=== PATIENT | male | born 1965 | race Caucasian/White ===

== ENCOUNTER 2016-11-27 19:12 | Emergency (ER) | payer OTHER ==
[2016-11-27 19:21] VITALS: BP 156/86; PULSE 101; TEMP 98; BMI 44.8
[2016-11-27] MEDS ORDERED: predniSONE 20 MG TABLET (UD) PO ONE (20:31)
[2016-11-27] MEDS ORDERED: ALBUTEROL SO4 2.5/IPRATROPIUM 0.5 INH SOL 3 ML VIAL.NEB. NEB ONE ×2 (20:31→21:07)
--- NOTE | 2016-11-27 20:35 | PDOC ---
History of Present Illness - General Chief Complaint: Shortness of Breath Stated Complaint: SHORTNESS OF BREATH Time Seen by Provider: 11/27/16 20:21 History Source: Patient Exam Limitations: No Limitations - History of Present Illness Initial Comments: 11/27/16 20:32 51 yr male with cough and wheezing for 3 days after exposure to cigarette smoke second hand. Pt states the cold and then warm weather changes is making asthma worse. no fever no chest pain , pt has dry cough. Pt has history of DM, high cholesterol. Seen here one montha go with flu and bronchitis . Severity: reports: mild, moderate Possible Cause: Yes: occasional episodes, smoke exposure Past History - Past Medical History Allergies/Adverse Reactions: Allergies Allergy/AdvReac Type Severity Reaction Status Date / Time ciprofloxacin Allergy Mild Rash Verified 11/05/16 09:52 Home Medications: Ambulatory Orders Metformin HCl [Glucophage -] 500 mg PO BID 10/03/13 Lovastatin 20 mg PO 11/05/16 Albuterol Sulfate Inhaler - [Ventolin Hfa Inhaler -] 2 inh PO Q4H #1 inh Methylprednisolone [Medrol Dose Francisco] 4 mg PO ASDIR #21 tablet 11/27/16 Cancer: No Diabetes: Yes Hypercholesterolemia: Yes HIV: No - Psycho/Social/Smoking Cessation Hx Anxiety: No Suicidal Ideation: No Smoking Status: No Smoking History: Never smoked Number of Cigarettes Smoked Daily: 0 Information on smoking cessation initiated: No Hx Alcohol Use: No Drug/Substance Use Hx: No Substance Use Type: None Respiratory Specific PMHX - Complaint Specific PMHX Angina: No Bronchitis: Yes Pneumonia: No Pulmonary Embolus: No TB (Tuberculosis): No Review of Systems - Review of Systems Able to Perform ROS?: Yes Is the patient limited Spanish proficient: No Constitutional: No: Symptoms Reported Respiratory: Yes: Symptoms reported, See HPI *Physical Exam - Vital Signs Last Vital Signs Temp Pulse Resp BP Pulse Ox 98.0 F 101 H 14 156/86 98 11/27/16 19:18 11/27/16 19:18 11/27/16 19:18 11/27/16 19:18 11/27/16 19:18 - Physical Exam General Appearance: Yes: Nourished, Appropriately Dressed, Obese HEENT: positive: EOMI, TIMMY, Normal ENT Inspection, TMs Normal, Pharynx Normal Neck: positive: Supple. negative: Lymphadenopathy (R), Lymphadenopathy (L) Respiratory/Chest: positive: Wheezing. negative: Chest Tender, Respiratory Distress Cardiovascular: positive: Regular Rhythm, Regular Rate Gastrointestinal/Abdominal: positive: Normal Bowel Sounds, Soft Extremity: positive: Normal Inspection, Normal Range of Motion Integumentary: positive: Normal Color, Dry, Warm Neurologic: positive: Fully Oriented, Alert, Normal Mood/Affect, Normal Response , Motor Strength 5/5 Medical Decision Making - Medical Decision Making 11/27/16 20:34 cc: cough wheezing no fever speaking full sentences no acute distress will give 3 duonebs, prednisone and re-evaluate refer to pulmonary and senior technical business analyst 11/27/16 21:27 pt feels better after the nebulizers will dc home with inhaler, prednisone and follow up with ENT and pulmonary *DC/Admit/Observation/Transfer Diagnosis at time of Disposition: Bronchitis - Discharge Dispostion Disposition: HOME Condition at time of disposition: Good - Prescriptions Prescriptions: Methylprednisolone [Medrol Dose Francisco] 4 mg PO ASDIR #21 tablet Albuterol Sulfate Inhaler - [Ventolin Hfa Inhaler -] 2 inh PO Q4H #1 inh - Patient Instructions Additional Instructions: take prednisone daily next dose tomorrow morning use inhaler as directed you must monitor your blood sugar while on prednisone please call the pulmonary doctor tomorrow for follow up appointment as well as the allertgist at ENT [phone] return if any worsening symptoms
[2016-11-27] MEDS ORDERED: predniSONE 20 MG TABLET (UD) ONE ×2 (20:37→20:39)
== END 2016-11-27 21:39 | disposition home or self-care (01) ==
LOC: JERFT 19:12 → JER 19:12 → JERFT 21:39
PROC: 3E0F7GC Introduction of Other Therapeutic Substance into Respiratory Tract, Via Natural or Artificial Opening (ICD-10-PCS; principal; 2016-11-27)
PROC: 3E0F7GC Introduction of Other Therapeutic Substance into Respiratory Tract, Via Natural or Artificial Opening (ICD-10-PCS; 2016-11-27)
DX: J40 Bronchitis, not specified as acute or chronic (principal); Z77.22 Contact with and (suspected) exposure to environmental tobacco smoke (acute) (chronic); E11.9 Type 2 diabetes mellitus without complications; Z79.84 Long term (current) use of oral hypoglycemic drugs; E78.00 Pure hypercholesterolemia, unspecified
CPT/HCPCS: 99281-25

== ENCOUNTER 2017-01-16 14:46 | Emergency (ER) | payer OTHER ==
--- NOTE | 2017-01-16 14:52 | PDOC ---
Rapid Medical Evaluation Time Seen by Provider: 01/16/17 14:50 Medical Evaluation: Allergies Allergy/AdvReac Type Severity Reaction Status Date / Time ciprofloxacin Allergy Mild Rash Verified 01/16/17 14:50 01/16/17 14:51 I have performed a brief in-person evaluation of this patient. The patient presents with a chief complaint of: weakness and fatigue x 1 day. No other complaints Pertinent physical exam findings: I have ordered the following: cbc, comp, mag, ua, The patient will proceed to the ED for further evaluation.
[2017-01-16 14:54] VITALS: TEMP 98.8; BMI 44.1
[2017-01-16 16:28] LABS: BASOPHIL 0.2 % (0-2.0); EOSINOPHIL 0.4 % (0-4.5); MCHC 32.1 g/dl (32.0-35.9); MEAN CELL VOLUME 61.4 fl (80-96); MEAN PLT VOLUME 9.6 fl (7.5-11.1); NEUTROPHILS 79.5 % (42.8-82.8); PLATELET COUNT 199 K/MM3 (134-434); RDW 16.9 % (11.9-15.9); URINE APPEARANCE CLEAR; URINE BILIRUBIN NEGATIVE (NEGATIVE); URINE BLOOD NEGATIVE (NEGATIVE); URINE COLOR YELLOW; URINE GLUCOSE (UA) NEGATIVE (NEGATIVE); URINE KETONE NEGATIVE (NEGATIVE); URINE LEUK ESTERASE NEGATIVE (NEGATIVE); URINE NITRITE NEGATIVE (NEGATIVE); URINE PROTEIN NEGATIVE (NEGATIVE); URINE UROBILINOGEN NEGATIVE E.U./dl (0.2-1.0); WHITE BLOOD COUNT 9.8 K/mm3 (4.0-10.0)
[2017-01-16 16:33] LABS: MCH 19.7 pg (25.7-33.7)
[2017-01-16] MEDS ORDERED: SODIUM CHLORIDE 1,000 ML IV STA (16:39)
--- NOTE | 2017-01-16 16:41 | PDOC ---
History of Present Illness - General History Source: Patient Exam Limitations: No Limitations - History of Present Illness Initial Comments: 01/16/17 17:12 The patient is a 51 year old male, with a significant past medical history of thalassemia anemia, chronic bronchitis, diabetes and obesity, who presents to the emergency department with generalized weakness and fatigue since this morning. The patient was in his usual state of health yesterday. However, this morning the patient reports feeling fatigued with shortness of breath on exertion. The patient reports that when at rest, he feels fine. However when he ambulates, he feels short of breath. The patient denies chest pain. The patient denies fever, chills, nausea, vomiting, diarrhea, constipation, abdominal pain or any recent illnesses. Allergies: Ciprofloxacin. Past Surgical History: None reported. Social History: Non smoker. Denies alcohol or drug use. PCP: Dr. Shearer <Jacqui Francois - Last Filed: 01/16/17 20:15> - General History Source: Patient, Custodial Records Exam Limitations: No Limitations <Travon Hunt - Last Filed: 01/16/17 22:23> - General Chief Complaint: Weakness Stated Complaint: Shortness of Breath Time Seen by Provider: 01/16/17 14:50 Past History <Jacqui Francois - Last Filed: 01/16/17 20:15> - Past Medical History Cancer: No Diabetes: Yes Hypercholesterolemia: Yes HIV: No - Psycho/Social/Smoking Cessation Hx Anxiety: No Suicidal Ideation: No Smoking Status: No Smoking History: Never smoked Have you smoked in the past 12 months: No Number of Cigarettes Smoked Daily: 0 Information on smoking cessation initiated: No Hx Alcohol Use: No Drug/Substance Use Hx: No Substance Use Type: None <Travon Hunt - Last Filed: 01/16/17 22:23> - Past Medical History Allergies/Adverse Reactions: Allergies Allergy/AdvReac Type Severity Reaction Status Date / Time ciprofloxacin Allergy Mild Rash Verified 01/16/17 14:50 Home Medications: Ambulatory Orders Metformin HCl [Glucophage -] 500 mg PO BID 10/03/13 Lovastatin 20 mg PO DAILY 11/05/16 Albuterol Sulfate Inhaler - [Ventolin Hfa Inhaler -] 2 inh PO Q4H #1 inh Review of Systems - Review of Systems Able to Perform ROS?: Yes Comments:: 01/16/17 17:01 GENERAL/CONSTITUTIONAL: +Weakness, fatigue. No fever or chills. HEAD, EYES, EARS, NOSE AND THROAT: No change in vision. No ear pain or discharge. No sore throat. CARDIOVASCULAR: +Shortness of breath on exertion. No chest pain. RESPIRATORY: No cough, wheezing, or hemoptysis. GASTROINTESTINAL: No nausea, vomiting, diarrhea or constipation. GENITOURINARY: No dysuria, frequency, or change in urination. MUSCULOSKELETAL: No joint or muscle swelling or pain. No neck or back pain. SKIN: No rash. NEUROLOGIC: No headache, vertigo, loss of consciousness, or change in strength/ sensation. ENDOCRINE: No increased thirst. No abnormal weight change. HEMATOLOGIC/LYMPHATIC: No anemia, easy bleeding, or history of blood clots. ALLERGIC/IMMUNOLOGIC: No hives or skin allergy. <Jacqui Francois - Last Filed: 01/16/17 20:15> *Physical Exam - Vital Signs Last Vital Signs Temp Pulse Resp BP Pulse Ox 98.8 F 94 H 18 160/100 100 01/16/17 14:51 01/16/17 14:51 01/16/17 14:51 01/16/17 14:51 01/16/17 14:51 - Physical Exam Comments: 01/16/17 16:55 GENERAL: Awake, alert, and fully oriented, in no acute distress. HEAD: No signs of trauma. EYES: PERRLA, EOMI, sclera anicteric, conjunctiva clear. ENT: Auricles normal inspection, hearing grossly normal, nares patent, oropharynx clear without exudates. Moist mucosa. NECK: Normal ROM, supple, no lymphadenopathy, JVD, or masses. LUNGS: Breath sounds equal, clear to auscultation bilaterally. No wheezes, and no crackles. HEART: Regular rate and rhythm, normal S1 and S2, no murmurs, rubs or gallops. ABDOMEN: Soft, nontender, normoactive bowel sounds. No guarding, no rebound. No masses. EXTREMITIES: Normal range of motion, no edema. No clubbing or cyanosis. No cords, erythema, or tenderness. NEUROLOGICAL: Cranial nerves II through XII intact. Normal speech, normal gait. SKIN: Warm, dry, normal turgor, no rashes or lesions noted. <Jacqui Francois - Last Filed: 01/16/17 20:15> - Vital Signs Last Vital Signs Temp Pulse Resp BP Pulse Ox 98.8 F 94 H 18 160/100 100 01/16/17 14:51 01/16/17 14:51 01/16/17 14:51 01/16/17 14:51 01/16/17 14:51 <Travon Hunt - Last Filed: 01/16/17 22:23> Heart Score/ECG Review - History History: Moderately suspicious - Electrocardiogram EKG: Non specific repolarization disturbance - Age Age: 45-65 - Risk Factors Risk Factors Heart Score: Yes Hx Diabetes, Yes Hx Obesity Based on the list above the patient has:: 1-2 risk factors - Troponin Troponin: </= normal limit - Score Heart Score - Total: 4 #1 ECG reviewed & interpreted by me at: 16:30 01/16/17 16:40 NSR 84, T wave flattening II, III, aVF, V2-V6, no std/minerva, LVH, QTC 404 msec. #2 ECG reviewed & interpreted by me at: 20:45 01/16/17 22:09 NSR 91, LVH, T wave flattening II, III, aVF, V4-V6, no std/minerva, QTC 404 msec. ECG unchanged from prior. <Travon Hunt - Last Filed: 01/16/17 22:23> ED Treatment Course - LABORATORY CBC & Chemistry Diagram: 01/16/17 15:51 01/16/17 16:42 - ADDITIONAL ORDERS Additional order review: Laboratory Results 01/16/17 15:51 Sodium Cancelled Potassium Cancelled Chloride Cancelled Carbon Dioxide Cancelled Anion Gap Cancelled BUN Cancelled Creatinine Cancelled Creat Clearance w eGFR Cancelled Random Glucose Cancelled Calcium Cancelled Magnesium Cancelled Total Bilirubin Cancelled AST Cancelled ALT Cancelled Alkaline Phosphatase Cancelled Total Protein Cancelled Albumin Cancelled 01/16/17 15:51 RBC 6.09 H MCV 61.4 L MCHC 32.1 RDW 16.9 H MPV 9.6 Neutrophils % 79.5 Lymphocytes % 17.4 Monocytes % 2.5 L Eosinophils % 0.4 D Basophils % 0.2 <Jacqui Francois - Last Filed: 01/16/17 20:15> - LABORATORY CBC & Chemistry Diagram: 01/16/17 15:51 01/16/17 16:42 - ADDITIONAL ORDERS Additional order review: 01/16/17 15:51 RBC 6.09 H MCV 61.4 L MCHC 32.1 RDW 16.9 H MPV 9.6 Neutrophils % 79.5 Lymphocytes % 17.4 Monocytes % 2.5 L Eosinophils % 0.4 D Basophils % 0.2 - RADIOLOGY Radiology Studies Ordered: Category Date Time Status CHEST PA & LAT [RAD] Stat Radiology 01/16/17 16:35 Ordered <Carlyn Huntel - Last Filed: 01/16/17 22:23> Medical Decision Making - Medical Decision Making 01/16/17 19:28 EXAM: RAD/CHEST PA & LAT Reviewed By: Dr. Kristi Armenta IMPRESSION: No significant interval change. Mild cardiomegaly without evidence of acute lung disease. EXAM: US/ABDOMEN US LIMITED Reviewed By: Dr. Kristi Armenta IMPRESSION: Hepatomegaly with fatty infiltration versus hepatocellular disease. No gallstones are identified. Call placed to Dr. Saym Chakraborty at 19:52. Referred to answering service, awaiting callback. Dr. Bony Cohen returned call at 17:55, case discussed. Call placed to Dr. Baez at 19:54. Referred to answering service, awaiting callback. Dr. Patrick returned call at 20:12, case discussed. <Jacqui Francois - Last Filed: 01/16/17 20:15> - Medical Decision Making 01/16/17 16:37 A portion of this note was written by my scribe, under my supervision. Vital Signs Temp Pulse Resp BP Pulse Ox 98.8 F 94 H 18 160/100 100 01/16/17 14:51 01/16/17 14:51 01/16/17 14:51 01/16/17 14:51 01/16/17 14:51 51 year old male with past medical history of thalassemia anemia, obesity, DM, bronchitis presents with generalized weakness and fatigue. He reports yesterday of feeling well, but today noted that he was feeling fatigued and with some dypneic on exertion. He reports decreased excercise tolerance but denies chest pain. Denies recent illnesses, fevers, chills, nausea, vomiting, diarrhea. At rest, he feels unremarkable. When he ambulates, he feels SOB. Differential is broad and includes metabolic (i.e. hyperglycemia or hypoglycemia ), thalassemia anemia, and cardiac (ACS). WIll send labs including trop, ECG, CBC, CMP. IVF and reassess. 01/16/17 22:09 CBC, BMP 01/16/17 15:51 01/16/17 16:42 CMP Sodium 139 mmol/L (136-145) 01/16/17 16:42 Potassium 4.2 mmol/L (3.5-5.1) 01/16/17 16:42 Chloride 100 mmol/L (98-107) 01/16/17 16:42 Carbon Dioxide 28 mmol/L (21-32) 01/16/17 16:42 Anion Gap 11 (8-16) 01/16/17 16:42 BUN 13 mg/dL (7-18) D 01/16/17 16:42 Creatinine 0.7 mg/dL (0.7-1.3) D 01/16/17 16:42 Creat Clearance w eGFR > 60 (>60) 01/16/17 16:42 Random Glucose 166 mg/dL (74-106) H D 01/16/17 16:42 Calcium 8.7 mg/dL (8.5-10.1) 01/16/17 16:42 Magnesium 1.7 mg/dL (1.8-2.4) L 01/16/17 16:42 Total Bilirubin 1.1 mg/dL (0.2-1.0) H D 01/16/17 16:42 AST 422 U/L (15-37) H D 01/16/17 16:42 ALT 218 U/L (12-78) H D 01/16/17 16:42 Alkaline Phosphatase 101 U/L (45-117) D 01/16/17 16:42 Creatine Kinase 130 IU/L (39-308) 01/16/17 20:35 Creatine Kinase Index 1.1 % (0.0-5.0) 01/16/17 16:42 CK-MB (CK-2) 1.896 ng/ml (0.5-3.6) 01/16/17 16:42 CK-MB (CK-2) Rel Index Cancelled 01/16/17 16:42 Troponin I < 0.02 ng/ml (0.00-0.05) 01/16/17 20:35 Total Protein 7.0 g/dl (6.4-8.2) 01/16/17 16:42 Albumin 3.9 g/dl (3.4-5.0) 01/16/17 16:42 Urine Test Results Urine Color Yellow 01/16/17 15:51 Urine Appearance Clear 01/16/17 15:51 Urine pH 5.0 (5.0-8.0) 01/16/17 15:51 Ur Specific [place] 1.023 (1.001-1.035) 01/16/17 15:51 Urine Protein Negative (NEGATIVE) 01/16/17 15:51 Urine Glucose (UA) Negative (NEGATIVE) 01/16/17 15:51 Urine Ketones Negative (NEGATIVE) 01/16/17 15:51 Urine Blood Negative (NEGATIVE) 01/16/17 15:51 Urine Nitrite Negative (NEGATIVE) 01/16/17 15:51 Urine Bilirubin Negative (NEGATIVE) 01/16/17 15:51 Ur Leukocyte Esterase Negative (NEGATIVE) 01/16/17 15:51 The patient was given IV fluids and his weakness and short of breath resolved. Patient reports feeling well and unremarkable. I discussed the case regarding the LFTs with the patient. It is elevated mildly.Ultrasound was obtained and was noted to be fatty acid vs.hepatcellular disease. At this time, patient has no jaundice or right upper quadrant pain. Denies nausea or vomiting tolerate by mouth. I had consulted Dr. Cohen regarding the details of the case. He states that given patient has no symptoms, this can be worked up as an outpatient. Will give referral to Dr. Cohen as an outpatient. I agree with the plan. I had then consulted senior sales executive Dr. Patrick regarding this episode of dyspneic on exertion. I gave the details of the case. EKG demonstrates nonspecific flattening of T waves with no prior EKGs. He recommends to troponins and repeat EKG d-dimer. If stable and to troponins are negative and d-dimer is negative, patient can follow-up as an outpatient basis on an urgent timely fashion for outpatient stress test. Labs were done and to troponins were negative and the d-dimer is negative. We'll discharge patient with specialist follow-up. Patient agrees with plan. I discussed the physical exam findings, ancillary test results and final diagnoses with the patient. I answered all of the patient's questions. The patient was satisfied with the care received and felt comfortable with the discharge plan and treatment plan. The patient will call their primary care physician within 24 hours to arrange follow-up and will return to the Emergency Department with any new, persistant or worsening symptoms. <Travon Hunt - Last Filed: 01/16/17 22:23> *DC/Admit/Observation/Transfer - Attestations Scribe Attestion: 01/16/17 16:55 Documentation prepared by Jacqui Francois, acting as biomedical equipment support specialist for Travon Hunt MD. <Jacqui Francois - Last Filed: 01/16/17 20:15> - Discharge Dispostion Admit: No <Travon Hunt - Last Filed: 01/16/17 22:23> Diagnosis at time of Disposition: Lightheadedness - Discharge Dispostion Disposition: HOME Condition at time of disposition: Good - Referrals Referrals: Rose Mary Marquez MD [Primary Care Provider] - Bony Cohen MD [Staff Physician] - Charles Patrick MD [Staff Physician] - - Patient Instructions Printed Discharge Instructions: DI for Shortness of Breath, How to Manage Shortness of Breath Additional Instructions: Your liver enzymes are elevated, which may mean inflammation. It is very important that you follow up with a GI doctor. Call to schedule an appointment. It is also very important that you follow up with a senior sales executive. You will need a stress test. Please call Dr. Patrick for an appointment. If you develop any chest pain or shortness of breath, please return to the ER for further evaluation. Print Language: JORDANIAN - Post Discharge Activity Work/School Note: Back to Work
[2017-01-16 17:28] LABS: PLATELET ESTIMATE ADEQUATE (NORMAL)
[2017-01-16 17:29] LABS: HYPOCHROMIA 3+; MICROCYTOSIS 2+; PLATELET COMMENT2 FEW GIANT PLTS; POIKILOCYTOSIS 1+; POLYCHROMASIA 1+
[2017-01-16 17:34] LABS: ALBUMIN 3.9 g/dl (3.4-5.0); ANION GAP 11 (8-16); BILIRUBIN,TOTAL 1.1 mg/dL (0.2-1.0); CALCIUM 8.7 mg/dL (8.5-10.1); CO2 28 mmol/L (21-32); CREATININE 0.7 mg/dL (0.7-1.3); GLUCOSE,RANDOM 166 mg/dL (74-106); SGPT/ALT 218 U/L (12-78)
[2017-01-16 17:35] LABS: ALK PHOS 101 U/L (45-117); MAGNESIUM 1.7 mg/dL (1.8-2.4)
[2017-01-16 17:36] LABS: SGOT/AST 422 U/L (15-37)
[2017-01-16 17:37] LABS: TROPONIN I < 0.02 ng/ml (0.00-0.05)
[2017-01-16] MEDS ORDERED: MAGNESIUM SULF 50% (8.12 MEQ/2 ML-1 GM VIAL) IVPB ONE (20:16)
[2017-01-16] MEDS ORDERED: MAGNESIUM SULF 50% (8.12 MEQ/2 ML-1 GM VIAL) ONE (20:37)
[2017-01-16 21:07] VITALS: BP 121/74; PULSE 95
[2017-01-16 21:39] LABS: TROPONIN I < 0.02 ng/ml (0.00-0.05)
--- NOTE | 2017-01-17 14:45 | EKG ---
Test Reason : Blood Pressure : / mmHG Vent. Rate : 091 BPM Atrial Rate : 091 BPM P-R Int : 152 ms QRS Dur : 096 ms QT Int : 354 ms P-R-T Axes : 031 -05 075 degrees QTc Int : 435 ms NORMAL SINUS RHYTHM MINIMAL VOLTAGE CRITERIA FOR LVH, MAY BE NORMAL VARIANT NONSPECIFIC T WAVE ABNORMALITY ABNORMAL ECG WHEN COMPARED WITH ECG OF 16-JAN-2017 16:28, NO SIGNIFICANT CHANGE WAS FOUND Confirmed by JAIME GRAHAM MD ([id number]) on 01/17/2017 2:45:15 PM Referred By: Confirmed By:JAIME GRAHAM MD
--- NOTE | 2017-01-17 14:47 | EKG ---
Test Reason : Blood Pressure : / mmHG Vent. Rate : 084 BPM Atrial Rate : 084 BPM P-R Int : 148 ms QRS Dur : 098 ms QT Int : 342 ms P-R-T Axes : 033 -06 054 degrees QTc Int : 404 ms NORMAL SINUS RHYTHM MINIMAL VOLTAGE CRITERIA FOR LVH, MAY BE NORMAL VARIANT NONSPECIFIC T WAVE ABNORMALITY ABNORMAL ECG NO PREVIOUS ECGS AVAILABLE Confirmed by JAIME GRAHAM MD ([id number]) on 01/17/2017 2:47:18 PM Referred By: Confirmed By:JAIME GRAHAM MD
== END 2017-01-16 22:34 | disposition home or self-care (01) ==
LOC: JER 14:46
DX: R42 Dizziness and giddiness (principal); E11.9 Type 2 diabetes mellitus without complications; Z79.84 Long term (current) use of oral hypoglycemic drugs; E78.00 Pure hypercholesterolemia, unspecified
CPT/HCPCS: 36415; 71020-TC; 76705-TC; 80053; 81003; 82550; 82553; 83735; 84484; 85025; 85379; 93005; 93010; 99284-25

== ENCOUNTER 2017-02-17 19:24 | Emergency (ER) | payer OTHER ==
[2017-02-17 19:48] VITALS: TEMP 98; BMI 44.8
--- NOTE | 2017-02-17 23:08 | PDOC ---
History of Present Illness - General History Source: Patient Exam Limitations: No Limitations - History of Present Illness Initial Comments: 02/17/17 23:17 The patient is a 51 year old male with significant past medical history of recent evaluation for hypertension (not on medication), thalassemia anemia, chronic bronchitis, diabetes and obesity who presents to the ED for elevated blood pressure. Patient reports he recently followed up with a ice skating teacher where he was told to have high blood pressure. His ice skating teacher informed him that she wanted him to lose some weight before starting him on hypertension medications. He reports 3 days of a slight headache with tension in the back of his head and neck. He also has complaints of feeling anxious. He became concerned about his high blood pressure and decided to come to the ER. During triage, patients blood pressure was noted to be 161/108. States he is complaint with his medications. Denies lightheadedness, dizziness, chest pain, SOB, jaw pain, shoulder pain, arm pain, nausea, or vomiting. The patient denies fever, chills, cough, abdominal pain, and diarrhea. Allergies: ciprofloxacin Social History: No alcohol, tobacco, or drug use reported. Past Surgical History: None reported PCP: Dr. Rose Mary Shearer <Geraldine Mclain - Last Filed: 02/17/17 23:18> - General History Source: Patient <NemesioDonovan avina - Last Filed: 02/17/17 23:32> - General Chief Complaint: Blood Pressure Problem Stated Complaint: BLOOD PRESSURE PROBLEM Time Seen by Provider: 02/17/17 22:56 Past History <Geraldine Mclain - Last Filed: 02/17/17 23:18> - Past Medical History Cancer: No Diabetes: Yes Hypercholesterolemia: Yes HIV: No - Psycho/Social/Smoking Cessation Hx Anxiety: No Suicidal Ideation: No Smoking Status: No Smoking History: Never smoked Have you smoked in the past 12 months: No Number of Cigarettes Smoked Daily: 0 Hx Alcohol Use: No Drug/Substance Use Hx: No Substance Use Type: None <Donovan Choudhury - Last Filed: 02/17/17 23:32> - Past Medical History Allergies/Adverse Reactions: Allergies Allergy/AdvReac Type Severity Reaction Status Date / Time ciprofloxacin Allergy Mild Rash Verified 02/17/17 19:48 Home Medications: Ambulatory Orders Metformin HCl [Glucophage -] 500 mg PO BID 10/03/13 Lovastatin 20 mg PO DAILY 11/05/16 Review of Systems - Review of Systems Able to Perform ROS?: Yes Comments:: 02/17/17 23:17 CONSTITUTIONAL: Absent: fever, no chills, no fatigue EYES: Absent: visual changes ENT: Absent: ear pain, no sore throat CARDIOVASCULAR: +elevated bp Absent: chest pain, no palpitations RESPIRATORY: Absent: cough, no SOB GI: Absent: abdominal pain, no nausea, no vomiting, no constipation, no diarrhea GENITOURINARY: Absent: dysuria, no frequency, no hematuria MUSCULOSKELETAL: +tension in back of the head and neck Absent: back pain, no arthralgia Absent: rash NEURO: +mild headache PSYCHIATRIC: +anxious Absent: depression, suicidal or homicidal ideation <Geraldine Mclain - Last Filed: 02/17/17 23:18> *Physical Exam - Vital Signs Last Vital Signs Temp Pulse Resp BP Pulse Ox 98 F 96 H 18 161/108 98 02/17/17 19:45 02/17/17 19:45 02/17/17 19:45 02/17/17 19:45 02/17/17 19:45 - Physical Exam Comments: 02/17/17 23:17 GENERAL: Well-appearing, well-nourished. No apparent distress. HEENT: Normocephalic, atraumatic. PERRL, EOM intact. CARDIOVASCULAR: Normal S1, S2. Regular rate and rhythm. PULMONARY: Clear to auscultation bilaterally. ABDOMEN: Obese. Soft, non-distended, non-tender. EXTREMITIES: Normal ROM in all four extremities. No gross deformities. SKIN: Warm, dry. No rash NEUROLOGICAL: No focal neurological deficits. PSYCHIATRIC: Cooperative. Good eye contact. Appropriate mood and affect. <Geraldine Mclain - Last Filed: 02/17/17 23:18> - Vital Signs Last Vital Signs Temp Pulse Resp BP Pulse Ox 98 F 96 H 18 161/108 98 02/17/17 19:45 02/17/17 19:45 02/17/17 19:45 02/17/17 19:45 02/17/17 19:45 <Donovan Choudhury - Last Filed: 02/17/17 23:32> Medical Decision Making - Medical Decision Making 02/17/17 23:29 Dr. Choudhury: The scribe's documentation has been prepared under my direction and personally reviewed by me in its entirery. I confirm that the note above accurately reflects all work, treatment, procedures, and medical decision making performed by me. Pt states that he has not been able to sleep, concerned about his blood pressure. Pt advised to see his doctor for discussion of his blood pressure, and that he hasn't been able to sleep <Donovan Choudhury - Last Filed: 02/17/17 23:32> *DC/Admit/Observation/Transfer - Attestations Scribe Attestion: 02/17/17 23:17 Documentation prepared by Geraldine Mclain, acting as medical records technician for Donovan Choudhury MD <Geraldine Mclain - Last Filed: 02/17/17 23:18> - Discharge Dispostion Admit: No <Donovan Choudhury - Last Filed: 02/17/17 23:32> Diagnosis at time of Disposition: Anxiety Hypertension Qualifiers: Hypertension type: other secondary hypertension Qualified Code(s): I15.8 - Other secondary hypertension - Discharge Dispostion Disposition: HOME Condition at time of disposition: Stable - Referrals Referrals: Rose Mary Marquez MD [Primary Care Provider] - - Patient Instructions Printed Discharge Instructions: DI for High Blood Pressure, DI for Anxiety -- Adult Additional Instructions: Please see your doctor tomorrow. Please discuss with them the fact that you have not been sleeping, and the concern about your blood pressure Print Language: CHADIAN - Post Discharge Activity Work/School Note: Back to Work
[2017-02-17 23:21] VITALS: BP 126/84; PULSE 73
[2017-02-17] MEDS ORDERED: LORazepam 1 MG TABLET PO ONE (23:32)
[2017-02-17] MEDS ORDERED: LORazepam 0.5 MG TABLET ONE (23:38)
== END 2017-02-18 00:10 | disposition home or self-care (01) ==
LOC: JER 19:24
DX: I10 Essential (primary) hypertension (principal); D56.9 Thalassemia, unspecified; E11.9 Type 2 diabetes mellitus without complications; E66.09 Other obesity due to excess calories; Z68.41 Body mass index [BMI] 40.0-44.9, adult
CPT/HCPCS: 99281-25

== ENCOUNTER → 2017-03-24 | Emergency (ER) | payer OTHER ==
--- NOTE | 2017-03-24 03:39 | PDOC ---
History of Present Illness - General History Source: Patient Exam Limitations: No Limitations - History of Present Illness Initial Comments: 03/24/17 03:45 The patient is a 51 year old male with significant past medical history of hypertension, thalassemia anemia, chronic bronchitis, diabetes and obesity who presents to the ED for elevated blood pressure prior to arrival. Patient reports at around 1:30am he checked his blood pressure when he noted it to be 160/97 and normally it is in the 120s. States he was taking 5mg of norvasc that was recently changed 3 days ago to 7.5 mg. Patient reports some discomfort in the neck. Denies headache, blurry vision, dizziness, lightheadedness, SOB, chest pain, palpitations, nausea, or vomiting. The patient denies fever, chills, diaphoresis, cough, abdominal pain, and diarrhea. Allergies: ciprofloxacin Social History: No alcohol, tobacco, or drug use reported. Past Surgical History: None reported PCP: Dr. Rose Mary Shearer <Geraldine Mclain - Last Filed: 03/24/17 03:45> - General History Source: Patient <Donovan Choudhury - Last Filed: 03/24/17 04:08> - General Stated Complaint: BLOOD PRESSURE PROBLEM Time Seen by Provider: 03/24/17 03:39 Past History <Geraldine Mclain - Last Filed: 03/24/17 03:45> - Past Medical History Cancer: No Diabetes: Yes Hypercholesterolemia: Yes HIV: No - Psycho/Social/Smoking Cessation Hx Anxiety: No Suicidal Ideation: No Smoking Status: No Smoking History: Never smoked Have you smoked in the past 12 months: No Number of Cigarettes Smoked Daily: 0 Hx Alcohol Use: No Drug/Substance Use Hx: No Substance Use Type: None <Donovan Choudhury - Last Filed: 03/24/17 04:08> - Past Medical History Allergies/Adverse Reactions: Allergies Allergy/AdvReac Type Severity Reaction Status Date / Time ciprofloxacin Allergy Mild Rash Verified 03/24/17 03:48 Home Medications: Ambulatory Orders Metformin HCl [Glucophage -] 500 mg PO BID 10/03/13 Lovastatin 20 mg PO DAILY 11/05/16 Amlodipine Besylate 7.5 mg PO 03/24/17 Review of Systems - Review of Systems Able to Perform ROS?: Yes Comments:: 03/24/17 03:45 CONSTITUTIONAL: Absent: fever, no chills, no fatigue EYES: Absent: visual changes ENT: Absent: ear pain, no sore throat CARDIOVASCULAR: +elevated blood pressure Absent: chest pain, no palpitations RESPIRATORY: Absent: cough, no SOB GI: Absent: abdominal pain, no nausea, no vomiting, no constipation, no diarrhea GENITOURINARY: Absent: dysuria, no frequency, no hematuria MUSCULOSKELETAL: +neck discomfort Absent: back pain, no arthralgia SKIN: Absent: rash NEURO: Absent: headache <Geraldine Mclain - Last Filed: 03/24/17 03:45> *Physical Exam - Physical Exam Comments: 03/24/17 03:45 GENERAL: Well-appearing, well-nourished. No apparent distress. HEENT: Normocephalic, atraumatic. PERRL, EOM intact. CARDIOVASCULAR: Normal S1, S2. Regular rate and rhythm. PULMONARY: Clear to auscultation bilaterally. ABDOMEN: Soft, non-distended, non-tender. EXTREMITIES: Normal ROM in all four extremities. No gross deformities. SKIN: Warm, dry. No rash NEUROLOGICAL: No focal neurological deficits. <Geraldine Mclain - Last Filed: 03/24/17 03:45> Medical Decision Making - Medical Decision Making 03/24/17 04:01 Dr. Choudhury: The scribe's documentation has been prepared under my direction and personally reviewed by me in its entirery. I confirm that the note above accurately reflects all work, treatment, procedures, and medical decision making performed by me. 03/24/17 04:02 BP 151/90. Pt feeling better. Ask if his finger stick could be checked. BGM is 214 . Pt to be discharged and to follow up with his pcp. <Donovan Choudhuyr - Last Filed: 03/24/17 04:08> *DC/Admit/Observation/Transfer - Attestations Scribe Attestion: 03/24/17 03:46 Documentation prepared by Geraldine Mclain, acting as medical doctor nuclear medicine for Donovan Choudhury MD/DO. <Geraldine Mclain - Last Filed: 03/24/17 03:45> - Discharge Dispostion Admit: No <Donovan Choudhury - Last Filed: 03/24/17 04:08> Diagnosis at time of Disposition: Hypertension - Discharge Dispostion Disposition: HOME Condition at time of disposition: Stable - Referrals Referrals: Rose Mary Marquez MD [Primary Care Provider] - - Patient Instructions Printed Discharge Instructions: DI for High Blood Pressure, How to Monitor Your Blood Pressure at Home Print Language: TELUGU
[2017-03-24 03:53] VITALS: BP 151/90; PULSE 82; TEMP 97.6; BMI 44.1
== END | disposition home or self-care (01) ==
LOC: JER 02:30
DX: I10 Essential (primary) hypertension (principal); E11.9 Type 2 diabetes mellitus without complications; Z79.84 Long term (current) use of oral hypoglycemic drugs; D56.9 Thalassemia, unspecified; J42 Unspecified chronic bronchitis; E66.01 Morbid (severe) obesity due to excess calories; Z68.44 Body mass index [BMI] 60.0-69.9, adult
CPT/HCPCS: 99281-25

== ENCOUNTER 2017-05-01 03:29 | Emergency (ER) | payer OTHER ==
[2017-05-01 03:58] VITALS: BP 144/89; PULSE 64; TEMP 97.9; BMI 44.1
[2017-05-01] MEDS ORDERED: CYCLOBENZAPRINE HCL 10 MG TABLET (FP) PO ONE (04:06)
--- NOTE | 2017-05-01 04:30 | PDOC ---
History of Present Illness - General Chief Complaint: Pain Stated Complaint: BLOOD PRESSURE PROBLEM Time Seen by Provider: 05/01/17 03:59 History Source: Patient Exam Limitations: Language Barrier (Pillo, the RN, was utilized as a lithographic proofer. ) - History of Present Illness Initial Comments: CHIEF COMPLAINT: 51 y/o male c/o neck pain and anxiety. HISTORY OF PRESENT ILLNESS: The patient states he uses a sleep apnea machine. Recently he has been having trouble sleeping so he wakes up with the machine on , becomes very anxious, rips it off and has a pain in his neck from the abrupt movements. He states this has happened before and the ER doctor gave him a muscle relaxer and he felt better. He denies f/c, n/v/d, fall, CP, SOB, abd pain and all other symptoms. Vital signs on arrival are within normal limits REVIEW OF SYSTEMS: GENERAL/CONSTITUTIONAL: No fever/chills. No weakness. No weight change. + anxiety. HEAD, EYES, EARS, NOSE AND THROAT: No change in vision. No ear pain or discharge. No sore throat. CARDIOVASCULAR: No chest pain or shortness of breath. RESPIRATORY: No cough, wheezing, or hemoptysis. GASTROINTESTINAL: No nausea, vomiting, diarrhea, constipation. GENITOURINARY: No dysuria, frequency, or change in urination. MUSCULOSKELETAL: No joint or muscle swelling or pain. No back pain. +neck pain. SKIN: No rash or easy bruising. NEUROLOGIC: No headache, vertigo, loss of consciousness, or loss of sensation. PHYSICAL EXAM: GENERAL: The patient is awake, alert, and fully oriented, in no acute distress. HEAD: Normal with no signs of trauma. NECK: No midline cervical spine TTP, step offs or crepitus. ENT: Pupils equal, round and reactive to light, extraocular movements intact, sclera anicteric, conjunctiva clear. LUNGS: Clear to auscultation bilaterally. Normal excursion. No respiratory distress or use of accessory muscles. CV: RRR, S1/S2, no MRG. Cap refill < 2 sec. ABDOMEN: Soft, non-distended, non-tender even to deep palpation, no hepatomegaly or splenomegaly, no masses. EXTREMITIES: Normal range of motion, no edema. MUSCULOSKELETAL: Reproduction of pain with palpation of b/l trapezius muscles. NEUROLOGICAL: Normal speech, normal gait. CN II-XII grossly intact. PSYCH: Normal mood, normal affect. SKIN: Warm, dry, normal turgor, no rashes or lesions noted. Past History - Past Medical History Allergies/Adverse Reactions: Allergies Allergy/AdvReac Type Severity Reaction Status Date / Time ciprofloxacin Allergy Mild Rash Verified 05/01/17 03:54 Home Medications: Ambulatory Orders Metformin HCl [Glucophage -] 500 mg PO BID 10/03/13 Lovastatin 20 mg PO DAILY 11/05/16 Amlodipine Besylate 7.5 mg PO 03/24/17 Cancer: No Diabetes: Yes HTN: Yes Hypercholesterolemia: Yes HIV: No Psychiatric Problems: Yes (Anxiety) - Psycho/Social/Smoking Cessation Hx Anxiety: No Suicidal Ideation: No Smoking Status: No Smoking History: Never smoked Have you smoked in the past 12 months: No Number of Cigarettes Smoked Daily: 0 Information on smoking cessation initiated: No Hx Alcohol Use: No Drug/Substance Use Hx: No Substance Use Type: None *Physical Exam - Vital Signs Last Vital Signs Temp Pulse Resp BP Pulse Ox 97.9 F 64 19 144/89 97 05/01/17 03:55 05/01/17 03:55 05/01/17 03:55 05/01/17 03:55 05/01/17 03:55 ED Treatment Course - Medications Given in the ED: ED Medications Discontinued Medications Generic Name Dose Route Start Last Admin Trade Name Freq PRN Reason Stop Dose Admin Cyclobenzaprine HCl 10 mg 05/01/17 04:06 05/01/17 04:16 Flexeril - PO 05/01/17 04:07 10 mg ONCE ONE Administration Medical Decision Making - Medical Decision Making A/P: 51 y/o male with anxiety and muscular neck pain. Plan is as follows: 1. PO flexeril. The patient states he feels much better and wants to go home. Suggested he f/u with his PCP within 1 week and return to the ER with any worsening or concerning symptoms. The patient verbalizes understanding of all instructions, has no further questions and is awaiting discharge. *DC/Admit/Observation/Transfer Diagnosis at time of Disposition: Neck pain, Anxiety - Discharge Dispostion Disposition: HOME Condition at time of disposition: Improved - Referrals Referrals: Rose Mary Marquez MD [Primary Care Provider] - - Patient Instructions Printed Discharge Instructions: DI for Anxiety -- Adult, DI for Neck Pain Additional Instructions: Discharge Instructions: -Please take Motrin if needed for neck pain -Follow up with your doctor within 1 week -Return to the ER with any worsening or concerning symptoms
== END 2017-05-01 06:28 | disposition home or self-care (01) ==
LOC: JER 03:29
DX: M54.2 Cervicalgia (principal); F41.9 Anxiety disorder, unspecified; I10 Essential (primary) hypertension; E11.9 Type 2 diabetes mellitus without complications; Z79.84 Long term (current) use of oral hypoglycemic drugs; G47.30 Sleep apnea, unspecified
CPT/HCPCS: 99282-25

== ENCOUNTER 2017-07-24 16:25 | Emergency (ER) | payer OTHER ==
[2017-07-24 16:31] VITALS: BP 137/82; PULSE 81; TEMP 98.6; BMI 43.9
[2017-07-24] MEDS ORDERED: KETOROLAC TROMETHAMINE 30 MG/1 ML VIAL IM ONE (17:01)
[2017-07-24] MEDS ORDERED: KETOROLAC TROMETHAMINE 60 MG/2 ML VIAL ONE (17:09)
--- NOTE | 2017-07-24 17:18 | PDOC ---
History of Present Illness - General Chief Complaint: Pain Stated Complaint: LEG PAIN Time Seen by Provider: 07/24/17 16:56 History Source: Patient Exam Limitations: No Limitations - History of Present Illness Initial Comments: 07/24/17 17:01 51 yr male with pain to left thigh for 2 weeks. Pt states the pain started after he sat in a chair almost fell and stretched out his left leg. 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 Pt has history of NIDDM, HTN, high cholesterol. Pt denies back pain, buttock pain or abd pain . no chest pain or SOB no history of DVT. 07/24/17 19:41 Occurred: reports: other (2 weeks ago ) Severity: Yes: moderate Method of Injury: Yes: twisted Modifying Factors: improves with: None Lower Ext. Injury Location - Specific Injury Location Legs: left: normal inspection Past History - Past Medical History Allergies/Adverse Reactions: Allergies Allergy/AdvReac Type Severity Reaction Status Date / Time ciprofloxacin Allergy Mild Rash Verified 07/24/17 16:28 Home Medications: Ambulatory Orders Metformin HCl [Glucophage -] 500 mg PO BID 10/03/13 Lovastatin 20 mg PO DAILY 11/05/16 Amlodipine Besylate 7.5 mg PO 03/24/17 Naproxen [Naprosyn -] 500 mg PO BID PRN #10 tablet 07/24/17 Cancer: No Diabetes: Yes HTN: Yes Hypercholesterolemia: Yes HIV: No Psychiatric Problems: Yes (Anxiety) - Psycho/Social/Smoking Cessation Hx Anxiety: No Suicidal Ideation: No Smoking Status: No Smoking History: Never smoked Have you smoked in the past 12 months: No Number of Cigarettes Smoked Daily: 0 Hx Alcohol Use: No Drug/Substance Use Hx: No Substance Use Type: None Review of Systems - Review of Systems Able to Perform ROS?: Yes Is the patient limited Ug[place]an proficient: No Constitutional: No: Symptoms Reported HEENTM: No: Symptoms Reported Respiratory: No: Symptoms reported Cardiac (ROS): No: Symptoms Reported ABD/GI: No: Symptoms Reported : No: Symptoms Reported Musculoskeletal: Yes: Symptoms Reported *Physical Exam - Vital Signs Last Vital Signs Temp Pulse Resp BP Pulse Ox 98.6 F 81 19 137/82 97 07/24/17 16:29 07/24/17 16:29 07/24/17 16:29 07/24/17 16:29 07/24/17 16:29 - Physical Exam General Appearance: Yes: Nourished, Appropriately Dressed HEENT: positive: EOMI, TIMMY, Normal ENT Inspection, TMs Normal, Pharynx Normal Neck: positive: Supple. negative: Tender Respiratory/Chest: positive: Lungs Clear, Normal Breath Sounds Cardiovascular: positive: Regular Rhythm, Regular Rate Gastrointestinal/Abdominal: positive: Normal Bowel Sounds, Soft. negative: Tender Lymphatic: negative: Adenopathy Musculoskeletal: positive: Normal Inspection. negative: Vertebral Tenderness Extremity: positive: Normal Capillary Refill, Normal Inspection, Normal Range of Motion, Tender (lateral left thigh ), Other (no redness, no swellling, skin intact no sign of trauma ). negative: Swelling, Calf Tenderness, Erythema, Inflammation Integumentary: positive: Normal Color, Dry, Warm Neurologic: positive: dial buffer II-XII NML intact, Fully Oriented, Alert, Normal Mood/ Affect, Normal Response, Motor Strength 5/5 ED Treatment Course - RADIOLOGY Radiology Studies Ordered: Category Date Time Status DUPLEX VASCUL US-1 LEG [US] Stat Ultrasound 07/24/17 17:01 Ordered Medical Decision Making - Medical Decision Making 07/24/17 17:05 cc: left thigh pain for 2 weeks , states "shooting, burning sensation" after near fall, stretched/hyperextended leg no redness, no swelling, skin intact, no rashes pt obese, history of DM, HTN, will r/o DVT toradol for pain pt is ambulatory 07/24/17 18:24 us is negative for DVT pt feels relief from toradol , states pain has improved pt is ambulating freely pt understands the treatment is not complete until pt is followed up by primary care doctor on Thursday pt has been given a work note to take off this weekend and rest the leg pt and his friend agree with the plan of care. all questions asked and answered at discharge. 07/24/17 19:42 *DC/Admit/Observation/Transfer Diagnosis at time of Disposition: Leg pain, lateral Qualifiers: Laterality: left Qualified Code(s): M79.605 - Pain in left leg - Discharge Dispostion Disposition: HOME Condition at time of disposition: Improved - Prescriptions Prescriptions: Naproxen [Naprosyn -] 500 mg PO BID PRN #10 tablet PRN Reason: Pain - Referrals Referrals: Rose Mary Marquez MD [Primary Care Provider] - - Patient Instructions Additional Instructions: follow with your doctor on Thursday take naprosyn as directed for pain elevate and apply warm compresses every 3hrs for 20 minutes this may help with the sensation return to ER if worse - Post Discharge Activity Work/School Note: Back to Work
== END 2017-07-24 18:36 | disposition home or self-care (01) ==
LOC: JERFT 16:25
PROC: 3E0233Z Introduction of Anti-inflammatory into Muscle, Percutaneous Approach (ICD-10-PCS; principal; 2017-07-24)
DX: M79.605 Pain in left leg (principal); X50.1XXA Overexertion from prolonged static or awkward postures, initial encounter; Y93.89 Activity, other specified; Y92.038 Other place in apartment as the place of occurrence of the external cause; I10 Essential (primary) hypertension; E11.9 Type 2 diabetes mellitus without complications; Z79.84 Long term (current) use of oral hypoglycemic drugs; E78.00 Pure hypercholesterolemia, unspecified; F41.9 Anxiety disorder, unspecified
CPT/HCPCS: 93971-TC; 96372; 99281-25

== ENCOUNTER 2018-03-17 11:41 | Observation (INO) | payer OTHER ==
[2018-03-17 11:48] VITALS: BMI 42.5
[2018-03-17] MEDS: SODIUM CHLORIDE 1,000 ML IV SCH (12:42)
--- NOTE | 2018-03-17 12:58 | PDOC ---
History of Present Illness - General History Source: Patient Exam Limitations: No Limitations - History of Present Illness Initial Comments: 03/17/18 14:18 The patient is an obese 52 year old male with history of hypertension, diabetes , who presents to the ED complaining of tingling down his left upper extremity that began approximately 45 minutes prior to evaluation. Tingling is localized to the left upper extremity. No tingling in the face or legs. He denies trauma or injury. He denies headache, blurred vision, or difficulty speaking. He denies chest pain, shortness of breath, or peripheral edema. Denies neck pain, trauma. <Ciara Rodriguez - Last Filed: 03/17/18 14:18> <Tor Mays - Last Filed: 03/19/18 20:41> - General Stated Complaint: NUMBNESS IN LT ARM Time Seen by Provider: 03/17/18 12:24 NIH Stroke Scale - Last Known Well Date/Time & Onset Date Last Known Well: 03/17/18 Time Last Known Well: 12:00 - Initial Evaluation Level of consciousness: Alert Ask patient the month and their age: Answers both correctly Ask patient to open & close eyes; make fist and let go: Obeys both correctly Best gaze (horizontal eye movement): Normal Visual field testing: No visual field loss Facial paresis (Show teeth/raise eyebrows/close eyes tight): Normal symmetrical movement Motor Function: Left Arm: Normal Motor Function: Right Arm: Normal (extends arm 90 (or 45) degrees for 10 seconds without drift Motor Function: Left Leg: Normal (extends leg 30 degrees for 5 seconds without drift) Motor Function: Right Leg: Normal (extends leg 30 degrees for 5 seconds without drift) Limb Ataxia: No ataxia Sensory(Use pinprick test arms,legs,trunk,face/side to side): Mild to moderate decrease in sensation Best language (Describe picture, name items, read sentences): No Aphasia Dysarthria (read several words): Normal articulation Extinction and Inattention: No abnormality - Total Score NIH Stroke Scale Score: 1 <Tor Mays - Last Filed: 03/19/18 20:41> Past History <Ciara Rodriguez - Last Filed: 03/17/18 14:18> - Past Medical History Cancer: No COPD: No Diabetes: Yes HTN: Yes Hypercholesterolemia: Yes Psychiatric Problems: Yes (Anxiety) - Suicide/Smoking/Psychosocial Hx Smoking Status: No Smoking History: Never smoked Have you smoked in the past 12 months: No Number of Cigarettes Smoked Daily: 0 Hx Alcohol Use: No Drug/Substance Use Hx: No Substance Use Type: None <Tor Mays - Last Filed: 03/19/18 20:41> - Past Medical History Allergies/Adverse Reactions: Allergies Allergy/AdvReac Type Severity Reaction Status Date / Time ciprofloxacin Allergy Mild Rash Verified 03/17/18 11:44 Home Medications: Ambulatory Orders metFORMIN HCL [Glucophage -] 500 mg PO BID 10/03/13 Amlodipine Besylate 7.5 mg PO DAILY 03/24/17 Aspirin [ASA -] 81 mg PO DAILY tab.chew 03/18/18 Atorvastatin Ca [Lipitor] 40 mg PO HS #30 tablet 03/18/18 Review of Systems - Review of Systems Able to Perform ROS?: Yes Comments:: 03/17/18 14:18 GENERAL/CONSTITUTIONAL: No fever or chills. No weakness. HEAD, EYES, EARS, NOSE AND THROAT: No change in vision. No ear pain or discharge. No sore throat. GASTROINTESTINAL: No nausea, vomiting, diarrhea or constipation. GENITOURINARY: No dysuria, frequency, or change in urination. CARDIOVASCULAR: No chest pain or shortness of breath. RESPIRATORY: No cough, wheezing, or hemoptysis. MUSCULOSKELETAL: No joint or muscle swelling or pain. No neck or back pain. SKIN: No rash NEUROLOGIC: No headache, vertigo, loss of consciousness, +LUE tingling ENDOCRINE: No increased thirst. No abnormal weight change. HEMATOLOGIC/LYMPHATIC: No anemia, easy bleeding, or history of blood clots. ALLERGIC/IMMUNOLOGIC: No hives or skin allergy. <Ciara Rodriguez - Last Filed: 03/17/18 14:18> *Physical Exam - Vital Signs Last Vital Signs Temp Pulse Resp BP Pulse Ox 98.5 F 76 18 138/82 97 03/17/18 11:44 03/17/18 11:44 03/17/18 11:44 03/17/18 11:44 03/17/18 11:44 - Physical Exam Comments: 03/17/18 14:19 GENERAL: Awake, alert, and fully oriented, in no acute distress HEAD: No signs of trauma EYES: PERRLA, EOMI, sclera anicteric, conjunctiva clear ENT: Auricles normal inspection, hearing grossly normal, nares patent, oropharynx clear without exudates. Moist mucosa NECK: Normal ROM, supple, no lymphadenopathy, JVD, or masses LUNGS: Breath sounds equal, clear to auscultation bilaterally. No wheezes, and no crackles HEART: Regular rate and rhythm, normal S1 and S2, no murmurs, rubs or gallops ABDOMEN: Soft, nontender, normoactive bowel sounds. No guarding, no rebound. No masses EXTREMITIES: Normal range of motion, no edema. No clubbing or cyanosis. No cords, erythema, or tenderness NEUROLOGICAL: Normal speech, cranial nerves intact, negative pronator drift, 5/ 5 strength in all 4 extremities, decreased sensation to LUE. normal sensation to light touch in remaining 3 extremities, normal cerebellar exam, normal gait, normal reflexes and tone. Able to walk in tandem BACK: no midline cervical, thoracic, or lumbar ttp. Sxs not exacerbated with ROM of neck SKIN: Warm, Dry, normal turgor, no rashes or lesions noted. <Ciara Rodriguez - Last Filed: 03/17/18 14:18> - Vital Signs Last Vital Signs Temp Pulse Resp BP Pulse Ox 98.5 F 76 18 138/82 97 03/17/18 11:44 03/17/18 11:44 03/17/18 11:44 03/17/18 11:44 03/17/18 11:44 <Tor Mays - Last Filed: 03/19/18 20:41> ED Treatment Course - LABORATORY CBC & Chemistry Diagram: 03/17/18 13:05 03/17/18 13:05 - ADDITIONAL ORDERS Additional order review: Laboratory Results 03/17/18 03/17/18 13:05 13:05 PT with INR 11.70 INR 1.04 Sodium 141 Potassium 4.1 Chloride 105 Carbon Dioxide 29 Anion Gap 7 L BUN 9 D Creatinine 0.6 L Creat Clearance w eGFR > 60 Random Glucose 116 H D Calcium 9.0 Total Bilirubin 0.7 D AST 33 D ALT 61 D Alkaline Phosphatase 86 Creatine Kinase 91 Troponin I < 0.02 Total Protein 7.3 Albumin 4.0 Triglycerides 145 Cholesterol 201 H Total LDL Cholesterol 148 H HDL Cholesterol 36 L 03/17/18 13:05 RBC 5.96 H MCV 62.2 L MCHC 32.3 RDW 17.1 H MPV 9.1 Neutrophils % 56.2 D Lymphocytes % 37.0 D Monocytes % 5.1 D Eosinophils % 1.1 D Basophils % 0.6 <Ciara Rodriguez - Last Filed: 03/17/18 14:18> - LABORATORY CBC & Chemistry Diagram: 03/18/18 07:10 03/18/18 07:10 - RADIOLOGY Radiology Studies Ordered: Category Date Time Status HEAD CT (STROKE) [CT] Stat CT Scan 03/17/18 12:41 Taken <Tor Mays - Last Filed: 03/19/18 20:41> Medical Decision Making - Medical Decision Making 03/17/18 12:57 52-year-old male with a history of diabetes and hypertension presents with 45 minutes of left upper extremity numbness and weakness. Vitals within normal limits. Exam with decreased sensation to the left arm. Code paez activated. Differential includes CVA versus TIA versus cervical neuropathy. Case discussed with Dr. George, given low NIH stroke scale of 1, will hold off on TPA at this time. CT had on my read appears within normal limits. Labs and MRI pending. Patient will need admission for stroke workup. 03/17/18 15:24 CT head and labs within normal limits. Case discussed with Dr. Wiley, recommends MR and holding off on MRA head/neck for now. Case discussed with Dr. Bryson, accepted for admission to stroke bed. Case discussed in detail with admitting physician including history, physical exam and ancillary studies. Admitting physician has assumed care for the patient, will follow all pending diagnostics and will complete the evaluation and treatment. <Tor Mays - Last Filed: 03/19/18 20:41> *DC/Admit/Observation/Transfer - Attestations Scribe Attestion: 03/17/18 14:19 Documentation prepared by Ciara Rodriguez, acting as medical coding auditor for Tor Mays MD. <Ciara Rodriguez - Last Filed: 03/17/18 14:18> - Discharge Dispostion Decision to Admit order: Yes - Attestations Physician Attestion: 03/17/18 15:20 I, Dr. Tor Mays MD, attest that this document has been prepared under my direction and personally reviewed by me in its entirety. I further attest, that it accurately reflects all work, treatment, procedures and medical decision -making performed by me. <Tor Mays - Last Filed: 03/19/18 20:41> Diagnosis at time of Disposition: Arm numbness left - Discharge Dispostion Disposition: HOME Condition at time of disposition: Stable
[2018-03-17 13:15] LABS: BASO % 0.6 % (0-2.0); EOS % 1.1 % (0-4.5); HEMATOCRIT 37.1 % (35.4-49); MCH 20.1 pg (25.7-33.7); MCHC 32.3 g/dl (32.0-35.9); MEAN CELL VOLUME 62.2 fl (80-96); MEAN PLT VOLUME 9.1 fl (7.5-11.1); MONO % 5.1 % (3.8-10.2); NEUT % 56.2 % (42.8-82.8); PLATELET COUNT 222 K/MM3 (134-434); RBC 5.96 M/mm3 (4.00-5.60); RDW 17.1 % (11.9-15.9); WHITE BLOOD COUNT 7.7 K/mm3 (4.0-10.0)
[2018-03-17 13:40] LABS: INR 1.04 (0.82-1.09); PROTHROMBIN TIME (PATIENT) 11.7 SEC (9.7-13.0)
[2018-03-17 13:53] LABS: ANION GAP 7 (8-16); BILIRUBIN,TOTAL 0.7 mg/dL (0.2-1.0); BLOOD UREA NITROGEN 9 mg/dL (7-18); CHLORIDE 105 mmol/L (98-107); CHOLESTEROL 201 mg/dL (50-200); CO2 29 mmol/L (21-32); CREATININE 0.6 mg/dL (0.7-1.3); GLUCOSE,RANDOM 116 mg/dL (74-106); POTASSIUM 4.1 mmol/L (3.5-5.1); SGOT/AST 33 U/L (15-37); SGPT/ALT 61 U/L (12-78); SODIUM 141 mmol/L (136-145); TOT PROT 7.3 g/dl (6.4-8.2); TRIGLYCERIDES 145 mg/dL (35-160)
[2018-03-17 13:54] LABS: ALK PHOS 86 U/L (45-117); HDL CHOLESTEROL 36 mg/dL (40-60)
[2018-03-17] MEDS ORDERED: ATORVASTATIN CA 80 MG TABLET (FP) PO ONE (15:19)
[2018-03-17] MEDS ORDERED: ASPIRIN 325 MG TABLET PO ONE (15:19)
--- NOTE | 2018-03-17 15:28 | EKG ---
Test Reason : Blood Pressure : / mmHG Vent. Rate : 062 BPM Atrial Rate : 062 BPM P-R Int : 158 ms QRS Dur : 096 ms QT Int : 418 ms P-R-T Axes : 051 016 041 degrees QTc Int : 424 ms NORMAL SINUS RHYTHM NONSPECIFIC T WAVE ABNORMALITY ABNORMAL ECG WHEN COMPARED WITH ECG OF 16-JAN-2017 20:45, NO SIGNIFICANT CHANGE WAS FOUND Confirmed by RIVER ESPARZA MD ([id number]) on 03/17/2018 3:28:31 PM Referred By: Confirmed By:RIVER ESPARZA MD
[2018-03-17 15:59] LABS: URINE APPEARANCE CLEAR; URINE BILIRUBIN NEGATIVE (<2.0 mg/dL); URINE COLOR YELLOW; URINE GLUCOSE (UA) NEGATIVE (NEGATIVE); URINE KETONE NEGATIVE (NEGATIVE); URINE LEUK ESTERASE NEGATIVE (NEGATIVE); URINE NITRITE NEGATIVE (NEGATIVE); URINE PROTEIN NEGATIVE (NEGATIVE); URINE UROBILINOGEN NEGATIVE mg/dL (0.2-1.0)
[2018-03-17] MEDS ORDERED: ASPIRIN 325 MG TABLET ONE (16:19)
[2018-03-17] MEDS ORDERED: ATORVASTATIN CA 80 MG TABLET (FP) ONE (16:19)
--- NOTE | 2018-03-17 16:55 | HP ---
<Blanca Styles - Last Filed: 03/17/18 18:28> Patient is comfortable with no acute distress, no shortness of breath. presented with Lue heaviness. Vital Signs Temperature 98.2 F 03/17/18 17:35 Pulse Rate 72 03/17/18 17:35 Respiratory Rate 18 03/17/18 17:35 Blood Pressure 130/79 03/17/18 17:35 O2 Sat by Pulse Oximetry (%) 99 03/17/18 17:35 CBCD WBC 7.7 K/mm3 (4.0-10.0) 03/17/18 13:05 RBC 5.96 M/mm3 (4.00-5.60) H 03/17/18 13:05 Hgb 12.0 GM/dL (11.7-16.9) 03/17/18 13:05 Hct 37.1 % (35.4-49) 03/17/18 13:05 MCV 62.2 fl (80-96) L 03/17/18 13:05 MCHC 32.3 g/dl (32.0-35.9) 03/17/18 13:05 RDW 17.1 % (11.9-15.9) H 03/17/18 13:05 Plt Count 222 K/MM3 (134-434) 03/17/18 13:05 MPV 9.1 fl (7.5-11.1) 03/17/18 13:05 CMP Sodium 141 mmol/L (136-145) 03/17/18 13:05 Potassium 4.1 mmol/L (3.5-5.1) 03/17/18 13:05 Chloride 105 mmol/L (98-107) 03/17/18 13:05 Carbon Dioxide 29 mmol/L (21-32) 03/17/18 13:05 Anion Gap 7 (8-16) L 03/17/18 13:05 BUN 9 mg/dL (7-18) D 03/17/18 13:05 Creatinine 0.6 mg/dL (0.7-1.3) L 03/17/18 13:05 Creat Clearance w eGFR > 60 (>60) 03/17/18 13:05 Random Glucose 116 mg/dL (74-106) H D 03/17/18 13:05 Calcium 9.0 mg/dL (8.5-10.1) 03/17/18 13:05 Total Bilirubin 0.7 mg/dL (0.2-1.0) D 03/17/18 13:05 AST 33 U/L (15-37) D 03/17/18 13:05 ALT 61 U/L (12-78) D 03/17/18 13:05 Alkaline Phosphatase 86 U/L (45-117) 03/17/18 13:05 Total Protein 7.3 g/dl (6.4-8.2) 03/17/18 13:05 Albumin 4.0 g/dl (3.4-5.0) 03/17/18 13:05 CARDIAC ENZYMES Creatine Kinase 91 IU/L (39-308) 03/17/18 13:05 Troponin I < 0.02 ng/ml (0.00-0.05) 03/17/18 13:05 Current Medications Generic Name Dose Route Start Last Admin Trade Name Freq PRN Reason Stop Dose Admin Amlodipine Besylate 7.5 mg 03/18/18 10:00 Norvasc - PO DAILY KRISTOPHER Aspirin 81 mg 03/18/18 10:00 Asa - PO DAILY KRISTOPHER Atorvastatin Calcium 40 mg 03/17/18 22:00 Lipitor - PO HS KRISTOPHER Heparin Sodium (Porcine) 5,000 unit 03/17/18 22:00 Heparin - SQ TID KRISTOPHER Sodium Chloride 1,000 mls @ 42 mls/hr 03/17/18 12:45 03/17/18 12:42 Normal Saline - IV 42 mls/hr ASDIR KRISTOPHER Administration Insulin Aspart 1 vial 03/17/18 22:00 Novolog Vial Sliding Scale - SQ ACHS [facility] Protocol Home Medications Medication Instructions Recorded metFORMIN HCL [Glucophage -] 500 mg PO BID 10/03/13 Lovastatin 20 mg PO DAILY 11/05/16 Amlodipine Besylate 7.5 mg PO DAILY 03/24/17 #TIA r/o CVA ASpirin. lipitor, ce q8x2, ekg in am , Lipid panel , patient is going to MRI, neuro consult appreciated. # T2DM continue with sliding scale with coverage. # HTN controlled on Norvasc. Hospitalist Screening - Colonoscopy Questionnaire Colonoscopy Questionnaire: Colonoscopy Questionnaire <Temi Frias - Last Filed: 03/21/18 17:43> CHIEF COMPLAINT: Left Arm numbness PCP: Dr. Rose Mary Marquez Gold Leaf Laborer: Dr. Rae Figueroa ([phone]) HISTORY OF PRESENT ILLNESS: Patient is a 52 year old male with a PMHx of HTN, NIDDMII, HLD who presents to the ED after experiencing left arm weakness, numbness, and tingling. Patient reports around 14:30 today he carried a tray of [employer] that was max 5 pounds and then started feeling numbness and tingling of the fingers and hands for about 30 seconds and stopped. Soon after he had numbness and "heaviness" of the left forearm that lasted for about 10 seconds and then his fingers contracted for about 10 minutes. Patient reports he experienced dizziness for just a few seconds when he experienced the forearm numbness. However he denies loss of consciousness or headaches. Patient denies any history of similar symptoms. Patient reports he currently has full sensation of bilateral upper and lower extremities. Otherwise, patient denies fever, chills, nausea, vomiting, abdominal pain, chest pain, palpitations, shortness of breath, dysuria, hematuria, frequency, urgency, acute vision loss, gait instability, difficulty speaking. ER course was notable for: (1) CT head Negative (2) vitals and Labs wnl (3) Neurology consult placed and recommended Brain MRI Recent Travel: Denies PAST MEDICAL HISTORY: HTN, NIDDMII, HLD PAST SURGICAL HISTORY: Denies Social History: Smoking:Denies Alcohol: Denies Drugs: Denies Works at [employer]. Lives with Family History: Mother- NIDDMII Allergies: ciprofloxacin Allergy (Mild, Verified 03/17/18 11:44) Rash HOME MEDICATIONS: Home Medications Medication Instructions Recorded metFORMIN HCL [Glucophage -] 500 mg PO BID 10/03/13 Lovastatin 20 mg PO DAILY 11/05/16 Amlodipine Besylate 7.5 mg PO 03/24/17 Naproxen [Naprosyn -] 500 mg PO BID PRN #10 tablet 07/24/17 REVIEW OF SYSTEMS CONSTITUTIONAL: Absent: fever, chills, diaphoresis, generalized weakness, malaise, loss of appetite, weight change HEENT: Absent: rhinorrhea, nasal congestion, throat pain, throat swelling, difficulty swallowing, mouth swelling, ear pain, eye pain, visual changes CARDIOVASCULAR: Absent: chest pain, syncope, palpitations, irregular heart rate, lightheadedness , peripheral edema RESPIRATORY: Absent: cough, shortness of breath, dyspnea with exertion, orthopnea, wheezing, stridor, hemoptysis GASTROINTESTINAL: Absent: abdominal pain, abdominal distension, nausea, vomiting, diarrhea, constipation, melena, hematochezia GENITOURINARY: Absent: dysuria, frequency, urgency, hesitancy, hematuria, flank pain, genital pain MUSCULOSKELETAL: Absent: myalgia, arthralgia, joint swelling, back pain, neck pain SKIN: Absent: rash, itching, pallor HEMATOLOGIC/IMMUNOLOGIC: Absent: easy bleeding, easy bruising, lymphadenopathy, frequent infections ENDOCRINE: Absent: unexplained weight gain, unexplained weight loss, heat intolerance, cold intolerance NEUROLOGIC: focal weakness or paresthesias, dizziness Absent: headache, unsteady gait, seizure, mental status changes, bladder or bowel incontinence PSYCHIATRIC: Absent: anxiety, depression, suicidal or homicidal ideation, hallucinations. PHYSICAL EXAMINATION Vital Signs - 24 hr 03/17/18 03/17/18 11:44 12:41 Temperature 98.5 F 98.4 F Pulse Rate 76 76 Pulse Rate [ 76 Right] Respiratory 18 16 Rate Blood Pressure 138/82 Blood Pressure 135/74 [Left Arm] O2 Sat by Pulse 97 99 Oximetry (%) GENERAL: Awake, alert, and fully oriented, in no acute distress. HEAD: Normal with no signs of trauma. EYES: Pupils equal, round and reactive to light, extraocular movements intact, sclera anicteric, conjunctiva clear. No lid lag. EARS, NOSE, THROAT:Oropharynx clear without exudates. Moist mucous membranes. NECK: Normal range of motion, supple without lymphadenopathy, JVD, or masses. LUNGS: Breath sounds equal, clear to auscultation bilaterally. No wheezes, and no crackles. No accessory muscle use. HEART: Regular rate and rhythm, normal S1 and S2 without murmur, rub or gallop. ABDOMEN: Soft, Obese, nontender, not distended, normoactive bowel sounds, no guarding, no rebound, no masses. MUSCULOSKELETAL: No CVA tenderness. UPPER EXTREMITIES: No peripheral edema. LOWER EXTREMITIES: No peripheral edema. NEUROLOGICAL: Cranial nerves II-XII intact. Normal speech. Motor strength 5/5 bilaterally with sensory intact. No facial asymmetry. 2+ dp bilaterally. PSYCHIATRIC: Cooperative. Good eye contact. Appropriate mood and affect. SKIN: Warm, dry, normal turgor, no rashes or lesions noted, normal capillary refill. Laboratory Results - last 24 hr CBC, BMP 03/17/18 13:05 03/17/18 13:05 Laboratory Tests 03/17/18 03/17/18 13:05 13:05 PT with INR 11.70 INR 1.04 AST 33 D ALT 61 D Cholesterol 201 H Total LDL Cholesterol 148 H HDL Cholesterol 36 L IMAGES: HEAD CT (03/17/18): No acute pathology. No hemorrhage or mass. ASSESSMENT/PLAN: Patient is a 52 year old male who experienced Left arm numbness and tingling. Patient admitted to rule out stroke. Left LUE Numbness and Tingling -NIHSS: 0 -Head CT negative -Vitals stable -Neurology consult placed and recommended MRI with no vascular testing -ASA 325mg given. Resume ASA 81mg daily -Atorvastatin 80mg given. Resume Atorvastatin 40mg daily -Cardiac monitoring for any arrythmias -A1C ordered -Will attempt to call airborne sensor specialist for recent ECHO. Patient reports having one done within the past week. HTN -Controlled -Resume home medications Amlodipine 7.5mg daily NIDDMII -A1C ordered -ISS -BGM HLD -Atorvastatin 40mg daily -Lipid panel revealed LDL 148 and Cholesterol 201 -Spoke to patient in detail about lifestyle modifications which includes weight loss and diet F/E/N -No fluids, patient tolerating PO -Electrolytes wnl -Sodium and diabetic controlled diet Prophylaxis -High risk. Heparin 5000 units Q8H for DVT. -No GI required Disposition -Full code -Brain MRI pending. Neuro to come assess patient Teim Frias MD PGY-2 Visit type - Emergency Visit Emergency Visit: Yes ED Registration Date: 03/17/18 Care time: The patient presented to the Emergency Department on the above date and was hospitalized for further evaluation of their emergent condition. - New Patient This patient is new to me today: Yes Date on this admission: 03/17/18 - Critical Care Critical Care patient: No Hospitalist Screening - Colonoscopy Questionnaire Colonoscopy Questionnaire: Colonoscopy Questionnaire - Patient: 50 - 75 years old and never had a screening colonoscopy: Unknown History of colon or rectal polyps, or CA: Unknown History of IBD, Crohn's disease or UC: Unknown History of abdominal radiation therapy as a child: Unknown - Relative: 1 with colon or rectal CA, or polyps at age 60 or younger: Unknown Colon or rectal CA diagnosed at age 45 or younger: Unknown Multiple relatives with colon or rectal CA: Unknown - Outcome: Screening Result: Negative Screen
--- NOTE | 2018-03-17 20:24 | PN ---
Teaching Attending Note Name of Resident: Temi Frias ATTENDING PHYSICIAN STATEMENT I saw and evaluated the patient. I reviewed the resident's note and discussed the case with the resident. I agree with the resident's findings and plan as documented. SUBJECTIVE: OBJECTIVE: Vital Signs Temperature 98.2 F 03/17/18 17:35 Pulse Rate 72 03/17/18 17:35 Respiratory Rate 18 03/17/18 17:35 Blood Pressure 130/79 03/17/18 17:35 O2 Sat by Pulse Oximetry (%) 99 03/17/18 17:35 CBCD WBC 7.7 K/mm3 (4.0-10.0) 03/17/18 13:05 RBC 5.96 M/mm3 (4.00-5.60) H 03/17/18 13:05 Hgb 12.0 GM/dL (11.7-16.9) 03/17/18 13:05 Hct 37.1 % (35.4-49) 03/17/18 13:05 MCV 62.2 fl (80-96) L 03/17/18 13:05 MCHC 32.3 g/dl (32.0-35.9) 03/17/18 13:05 RDW 17.1 % (11.9-15.9) H 03/17/18 13:05 Plt Count 222 K/MM3 (134-434) 03/17/18 13:05 MPV 9.1 fl (7.5-11.1) 03/17/18 13:05 CMP Sodium 141 mmol/L (136-145) 03/17/18 13:05 Potassium 4.1 mmol/L (3.5-5.1) 03/17/18 13:05 Chloride 105 mmol/L (98-107) 03/17/18 13:05 Carbon Dioxide 29 mmol/L (21-32) 03/17/18 13:05 Anion Gap 7 (8-16) L 03/17/18 13:05 BUN 9 mg/dL (7-18) D 03/17/18 13:05 Creatinine 0.6 mg/dL (0.7-1.3) L 03/17/18 13:05 Creat Clearance w eGFR > 60 (>60) 03/17/18 13:05 Random Glucose 116 mg/dL (74-106) H D 03/17/18 13:05 Calcium 9.0 mg/dL (8.5-10.1) 03/17/18 13:05 Total Bilirubin 0.7 mg/dL (0.2-1.0) D 03/17/18 13:05 AST 33 U/L (15-37) D 03/17/18 13:05 ALT 61 U/L (12-78) D 03/17/18 13:05 Alkaline Phosphatase 86 U/L (45-117) 03/17/18 13:05 Total Protein 7.3 g/dl (6.4-8.2) 03/17/18 13:05 Albumin 4.0 g/dl (3.4-5.0) 03/17/18 13:05 CARDIAC ENZYMES Creatine Kinase 91 IU/L (39-308) 03/17/18 13:05 Troponin I < 0.02 ng/ml (0.00-0.05) 03/17/18 13:05 Current Medications Generic Name Dose Route Start Last Admin Trade Name Ida PRN Reason Stop Dose Admin Amlodipine Besylate 7.5 mg 03/18/18 10:00 Norvasc - PO DAILY [facility] Aspirin 81 mg 03/18/18 10:00 Asa - PO DAILY [facility] Atorvastatin Calcium 40 mg 03/17/18 22:00 Lipitor - PO HS [facility] Heparin Sodium (Porcine) 5,000 unit 03/17/18 22:00 Heparin - SQ TID [facility] Sodium Chloride 1,000 mls @ 42 mls/hr 03/17/18 12:45 03/17/18 12:42 Normal Saline - IV 42 mls/hr ASDIR [facility] Administration Insulin Aspart 1 vial 03/17/18 22:00 Novolog Vial Sliding Scale - SQ ACHS [facility] Protocol Home Medications Medication Instructions Recorded metFORMIN HCL [Glucophage -] 500 mg PO BID 10/03/13 Lovastatin 20 mg PO DAILY 11/05/16 Amlodipine Besylate 7.5 mg PO DAILY 03/24/17 ASSESSMENT AND PLAN: Left LUE Numbness and Tingling HTN T2DM HLD
[2018-03-17] MEDS: HEPARIN NA (PORCINE) 5,000 UNITS/ML 1ML VIAL SQ SCH (21:55)
[2018-03-17] MEDS: INSULIN SLIDING SCALE (NOVOLOG) 1 VIAL SQ SCH (21:56)
[2018-03-17] MEDS ORDERED: ATORVASTATIN CA 10 MG TABLET (FP) PO SCH (22:00)
[2018-03-17] MEDS ORDERED: ATORVASTATIN CA 40 MG TABLET (FP) PO SCH (22:00)
--- NOTE | 2018-03-17 23:15 | PN ---
Progress Note (short form) - Note Progress Note: Called by nurse and was informed that patient's MRI returned positive for intracranial infarction. MRI Summary: Acute/subacute lacunar infarct in the right posterior frontal lobe , precentral gyrus Mild volume loss and ventricular dilatation. Discussed with Dr. George about plan: -patient was not taking aspirin at home, can keep on ASA 81 -keep on atorvastatin 40mg PO HS -order echocardiogram -order carotid doppler -physical therapy
[2018-03-18] MEDS: HEPARIN NA (PORCINE) 5,000 UNITS/ML 1ML VIAL SQ SCH ×2 (05:49→14:37)
[2018-03-18] MEDS: INSULIN SLIDING SCALE (NOVOLOG) 1 VIAL SQ SCH ×3 (06:17→17:34)
[2018-03-18 07:35] LABS: HEMATOCRIT 35.6 % (35.4-49); HEMOGLOBIN 11.5 GM/dL (11.7-16.9); MCHC 32.4 g/dl (32.0-35.9); MEAN CELL VOLUME 61.8 fl (80-96); MEAN PLT VOLUME 10.7 fl (7.5-11.1); PLATELET COUNT 233 K/MM3 (134-434); RBC 5.76 M/mm3 (4.00-5.60); WHITE BLOOD COUNT 7.1 K/mm3 (4.0-10.0)
[2018-03-18 08:52] LABS: CHLORIDE 104 mmol/L (98-107); POTASSIUM 4.6 mmol/L (3.5-5.1); SODIUM 140 mmol/L (136-145)
[2018-03-18 09:09] LABS: ANION GAP 9 (8-16); BLOOD UREA NITROGEN 9 mg/dL (7-18); CALCIUM 9.2 mg/dL (8.5-10.1); CO2 27 mmol/L (21-32); CREATININE 0.7 mg/dL (0.7-1.3); GLUCOSE,RANDOM 180 mg/dL (74-106)
--- NOTE | 2018-03-18 09:51 | CONSULT ---
Consult - text type - Consultation Consultation Note: Neurology HISTORY OF PRESENT ILLNESS: Patient is a 52 year old male with a PMHx of HTN, NIDDMII, HLD who presents to the ED after experiencing left arm weakness, numbness, and tingling. Patient reports around 14:30 on day of admission he carried a tray of pizza that was max 5 pounds and then started feeling numbness and tingling of the fingers and hands for about 30 seconds and stopped. Soon after he had numbness and "heaviness" of the left forearm that lasted for about 10 seconds and then his fingers contracted for about 10 minutes. Patient reports he experienced dizziness for just a few seconds when he experienced the forearm numbness. However he denies loss of consciousness or headaches. Patient denied any history of similar symptoms. Patient reports he currently has full sensation of bilateral upper and lower extremities. Otherwise, patient denies fever, chills, nausea, vomiting, abdominal pain, chest pain, palpitations, shortness of breath , dysuria, hematuria, frequency, urgency, acute vision loss, gait instability, difficulty speaking. He arrived to ED and CT head did not show acute changes. I was contacted by ER and patient had NIHSS of 1 and therefore TPA deferred. Overnight, MRI completed and I was contacted by resident. Demonstrated acute/ subacute R frontal precentral gyrus infarct. Advised resident to check carotids , echo. Discussed with patient and in detail and with his at bedside, discussed risk factor reduction. He was noncompliant with statin at home, LDL elevation noted. He was not taking ASA, therefore ASA 81mg started. Patient also with HTN and DM and discussed optimization of these factors. Based on size and location, hypertensive/small vessel infarct likely. Reports not complaints and symptoms resolved. Recent Travel: Denies PAST MEDICAL HISTORY: HTN, NIDDMII, HLD PAST SURGICAL HISTORY: Denies Social History: Smoking:Denies Alcohol: Denies Drugs: Denies Works at [employer]. Lives with Family History: Mother- NIDDMII Allergies: ciprofloxacin Allergy (Mild, Verified 03/17/18 11:44) Rash HOME MEDICATIONS: Home Medications Medication Instructions Recorded metFORMIN HCL [Glucophage -] 500 mg PO BID 10/03/13 Lovastatin 20 mg PO DAILY 11/05/16 Amlodipine Besylate 7.5 mg PO 03/24/17 Naproxen [Naprosyn -] 500 mg PO BID PRN #10 tablet 07/24/17 REVIEW OF SYSTEMS CONSTITUTIONAL: Absent: fever, chills, diaphoresis, generalized weakness, malaise, loss of appetite, weight change HEENT: Absent: rhinorrhea, nasal congestion, throat pain, throat swelling, difficulty swallowing, mouth swelling, ear pain, eye pain, visual changes CARDIOVASCULAR: Absent: chest pain, syncope, palpitations, irregular heart rate, lightheadedness , peripheral edema RESPIRATORY: Absent: cough, shortness of breath, dyspnea with exertion, orthopnea, wheezing, stridor, hemoptysis GASTROINTESTINAL: Absent: abdominal pain, abdominal distension, nausea, vomiting, diarrhea, constipation, melena, hematochezia GENITOURINARY: Absent: dysuria, frequency, urgency, hesitancy, hematuria, flank pain, genital pain MUSCULOSKELETAL: Absent: myalgia, arthralgia, joint swelling, back pain, neck pain SKIN: Absent: rash, itching, pallor HEMATOLOGIC/IMMUNOLOGIC: Absent: easy bleeding, easy bruising, lymphadenopathy, frequent infections ENDOCRINE: Absent: unexplained weight gain, unexplained weight loss, heat intolerance, cold intolerance NEUROLOGIC: focal weakness or paresthesias, dizziness Absent: headache, unsteady gait, seizure, mental status changes, bladder or bowel incontinence PSYCHIATRIC: Absent: anxiety, depression, suicidal or homicidal ideation, hallucinations. PHYSICAL EXAMINATION Vital Signs Temperature 97.7 F 03/18/18 05:00 Pulse Rate 73 03/18/18 05:00 Respiratory Rate 18 03/18/18 05:00 Blood Pressure 149/71 03/18/18 05:00 O2 Sat by Pulse Oximetry (%) 99 03/17/18 21:00 GENERAL: Awake, alert, and fully oriented, in no acute distress. HEAD: Normal with no signs of trauma. EYES: Pupils equal, round and reactive to light, extraocular movements intact, sclera anicteric, conjunctiva clear. No lid lag. EARS, NOSE, THROAT:Oropharynx clear without exudates. Moist mucous membranes. NECK: Normal range of motion, supple without lymphadenopathy, JVD, or masses. LUNGS: Breath sounds equal, clear to auscultation bilaterally. No wheezes, and no crackles. No accessory muscle use. HEART: Regular rate and rhythm, normal S1 and S2 without murmur, rub or gallop. ABDOMEN: Soft, Obese, nontender, not distended, normoactive bowel sounds, no guarding, no rebound, no masses. MUSCULOSKELETAL: No CVA tenderness. UPPER EXTREMITIES: No peripheral edema. LOWER EXTREMITIES: No peripheral edema. NEUROLOGICAL: Cranial nerves II-XII intact. Normal speech. Motor strength 5/5 bilaterally with sensory intact. No facial asymmetry. 2+ dp bilaterally. No sensory abnormalities PSYCHIATRIC: Cooperative. Good eye contact. Appropriate mood and affect. SKIN: Warm, dry, normal turgor, no rashes or lesions noted, normal capillary refill. CBCD WBC 7.1 K/mm3 (4.0-10.0) 03/18/18 07:10 RBC 5.76 M/mm3 (4.00-5.60) H 03/18/18 07:10 Hgb 11.5 GM/dL (11.7-16.9) L 03/18/18 07:10 Hct 35.6 % (35.4-49) 03/18/18 07:10 MCV 61.8 fl (80-96) L 03/18/18 07:10 MCHC 32.4 g/dl (32.0-35.9) 03/18/18 07:10 RDW 17.0 % (11.9-15.9) H 03/18/18 07:10 Plt Count 233 K/MM3 (134-434) 03/18/18 07:10 MPV 10.7 fl (7.5-11.1) D 03/18/18 07:10 CMP Sodium 140 mmol/L (136-145) 03/18/18 07:10 Potassium 4.6 mmol/L (3.5-5.1) 03/18/18 07:10 Chloride 104 mmol/L (98-107) 03/18/18 07:10 Carbon Dioxide 27 mmol/L (21-32) 03/18/18 07:10 Anion Gap 9 (8-16) 03/18/18 07:10 BUN 9 mg/dL (7-18) 03/18/18 07:10 Creatinine 0.7 mg/dL (0.7-1.3) 03/18/18 07:10 Creat Clearance w eGFR > 60 (>60) 03/17/18 13:05 Random Glucose 180 mg/dL (74-106) H D 03/18/18 07:10 Calcium 9.2 mg/dL (8.5-10.1) 03/18/18 07:10 Total Bilirubin 0.7 mg/dL (0.2-1.0) D 03/17/18 13:05 AST 33 U/L (15-37) D 03/17/18 13:05 ALT 61 U/L (12-78) D 03/17/18 13:05 Alkaline Phosphatase 86 U/L (45-117) 03/17/18 13:05 Total Protein 7.3 g/dl (6.4-8.2) 03/17/18 13:05 Albumin 4.0 g/dl (3.4-5.0) 03/17/18 13:05 CARDIAC ENZYMES Creatine Kinase 91 IU/L (39-308) 03/17/18 13:05 Troponin I < 0.02 ng/ml (0.00-0.05) 03/17/18 19:30 IMAGES: HEAD CT (03/17/18): No acute pathology. No hemorrhage or mass. MRI brain reviewed, acute/subacute R frontal infarct noted ASSESSMENT/PLAN: 52 year old male with a PMHx of HTN, NIDDMII, HLD who presents to the ED after experiencing left arm weakness, numbness, and tingling. CT head did not show acute changes. I was contacted by ER and patient had NIHSS of 1 and therefore TPA deferred. Based on size and location, hypertensive/small vessel infarct likely. MRI demonstrated acute/subacute R frontal precentral gyrus infarct. Advised permissive HTN until 2pm today to ER and overnight resident Then <160/90 for now, <130/80 as outpatient Telemetry monitoring, cardiology follow up Follow up carotids, echo. He was noncompliant with statin at home, LDL elevation noted. He was not taking ASA, therefore ASA 81mg started. Physical therapy as outpatient if needed Symptoms resolved Weight loss recommended DVT ppx
[2018-03-18] MEDS ORDERED: amLODIPine BESYLATE 5 MG TABLET (FP) PO SCH (10:00)
[2018-03-18] MEDS ORDERED: ASPIRIN 81 MG CHEWABLE TABLETS PO SCH (10:00)
--- NOTE | 2018-03-18 10:19 | PN ---
Physical Exam: SUBJECTIVE: Patient seen and examined OBJECTIVE: Vital Signs Period Temp Pulse Resp BP Sys/Meléndez Pulse Ox Last 24 Hr 97.6 F-98.5 F 56-76 16-20 128-149/71-82 97-100 GENERAL: The patient is awake, alert, and fully oriented, in no acute distress. HEAD: Normal with no signs of trauma. EYES: PERRL, extraocular movements intact, sclera anicteric, conjunctiva clear. No ptosis. ENT: Ears normal, nares patent, oropharynx clear without exudates, moist mucous membranes. NECK: Trachea midline, full range of motion, supple. LUNGS: Breath sounds equal, clear to auscultation bilaterally, no wheezes, no crackles, no accessory muscle use. HEART: Regular rate and rhythm, S1, S2 without murmur, rub or gallop. ABDOMEN: Soft, nontender, nondistended, normoactive bowel sounds, no guarding, no rebound, no hepatosplenomegaly, no masses. EXTREMITIES: 2+ pulses, warm, well-perfused, no edema. NEUROLOGICAL: Cranial nerves II through XII grossly intact. Normal speech, gait not observed. PSYCH: Normal mood, normal affect. SKIN: Warm, dry, normal turgor, no rashes or lesions noted Laboratory Results - last 24 hr 03/17/18 03/17/18 03/17/18 13:05 13:05 13:05 WBC 7.7 RBC 5.96 H Hgb 12.0 Hct 37.1 MCV 62.2 L MCH 20.1 L MCHC 32.3 RDW 17.1 H Plt Count 222 MPV 9.1 Neutrophils % 56.2 D Lymphocytes % 37.0 D Monocytes % 5.1 D Eosinophils % 1.1 D Basophils % 0.6 PT with INR 11.70 INR 1.04 Sodium 141 Potassium 4.1 Chloride 105 Carbon Dioxide 29 Anion Gap 7 L BUN 9 D Creatinine 0.6 L Creat Clearance w eGFR > 60 POC Glucometer Random Glucose 116 H D Calcium 9.0 Total Bilirubin 0.7 D AST 33 D ALT 61 D Alkaline Phosphatase 86 Creatine Kinase 91 Troponin I < 0.02 Total Protein 7.3 Albumin 4.0 Triglycerides 145 Cholesterol 201 H Total LDL Cholesterol 148 H HDL Cholesterol 36 L Urine Color Urine Appearance Urine pH Ur Specific [place] Urine Protein Urine Glucose (UA) Urine Ketones Urine Blood Urine Nitrite Urine Bilirubin Urine Urobilinogen Ur Leukocyte Esterase Blood Type Antibody Screen 03/17/18 03/17/18 03/17/18 13:05 15:50 19:30 WBC RBC Hgb Hct MCV MCH MCHC RDW Plt Count MPV Neutrophils % Lymphocytes % Monocytes % Eosinophils % Basophils % PT with INR INR Sodium Potassium Chloride Carbon Dioxide Anion Gap BUN Creatinine Creat Clearance w eGFR POC Glucometer Random Glucose Calcium Total Bilirubin AST ALT Alkaline Phosphatase Creatine Kinase Troponin I < 0.02 Total Protein Albumin Triglycerides Cholesterol Total LDL Cholesterol HDL Cholesterol Urine Color Yellow Urine Appearance Clear Urine pH 5.0 Ur Specific [place] 1.023 Urine Protein Negative Urine Glucose (UA) Negative Urine Ketones Negative Urine Blood Negative Urine Nitrite Negative Urine Bilirubin Negative Urine Urobilinogen Negative Ur Leukocyte Esterase Negative Blood Type B NEGATIVE Antibody Screen Negative 03/17/18 03/18/18 03/18/18 19:58 05:45 07:10 WBC 7.1 RBC 5.76 H Hgb 11.5 L Hct 35.6 MCV 61.8 L MCH 20.0 L MCHC 32.4 RDW 17.0 H Plt Count 233 MPV 10.7 D Neutrophils % Lymphocytes % Monocytes % Eosinophils % Basophils % PT with INR INR Sodium Potassium Chloride Carbon Dioxide Anion Gap BUN Creatinine Creat Clearance w eGFR POC Glucometer 116 169 Random Glucose Calcium Total Bilirubin AST ALT Alkaline Phosphatase Creatine Kinase Troponin I Total Protein Albumin Triglycerides Cholesterol Total LDL Cholesterol HDL Cholesterol Urine Color Urine Appearance Urine pH Ur Specific [place] Urine Protein Urine Glucose (UA) Urine Ketones Urine Blood Urine Nitrite Urine Bilirubin Urine Urobilinogen Ur Leukocyte Esterase Blood Type Antibody Screen 03/18/18 07:10 WBC RBC Hgb Hct MCV MCH MCHC RDW Plt Count MPV Neutrophils % Lymphocytes % Monocytes % Eosinophils % Basophils % PT with INR INR Sodium 140 Potassium 4.6 Chloride 104 Carbon Dioxide 27 Anion Gap 9 BUN 9 Creatinine 0.7 Creat Clearance w eGFR POC Glucometer Random Glucose 180 H D Calcium 9.2 Total Bilirubin AST ALT Alkaline Phosphatase Creatine Kinase Troponin I Total Protein Albumin Triglycerides Cholesterol Total LDL Cholesterol HDL Cholesterol Urine Color Urine Appearance Urine pH Ur Specific [place] Urine Protein Urine Glucose (UA) Urine Ketones Urine Blood Urine Nitrite Urine Bilirubin Urine Urobilinogen Ur Leukocyte Esterase Blood Type Antibody Screen Active Medications Generic Name Dose Route Start Last Admin Trade Name Freq PRN Reason Stop Dose Admin Amlodipine Besylate 7.5 mg 03/18/18 10:00 03/18/18 09:24 Norvasc - PO 7.5 mg DAILY KRISTOPHER Administration Aspirin 81 mg 03/18/18 10:00 03/18/18 09:24 Asa - PO 81 mg DAILY KRISTOPHER Administration Atorvastatin Calcium 40 mg 03/17/18 22:00 03/17/18 21:55 Lipitor - PO Not Given HS KRISTOPHER Heparin Sodium (Porcine) 5,000 unit 03/17/18 22:00 03/18/18 05:49 Heparin - SQ 5,000 unit TID KRISTOPHER Administration Sodium Chloride 1,000 mls @ 42 mls/hr 03/17/18 12:45 03/17/18 12:42 Normal Saline - IV 42 mls/hr ASDIR KRISTOPHER Administration Insulin Aspart 1 vial 03/17/18 22:00 03/18/18 06:17 Novolog Vial Sliding Scale - SQ Not Given ACHS KRISTOPHER Protocol ASSESSMENT/PLAN:
--- NOTE | 2018-03-18 10:44 | PN ---
Teaching Attending Note Name of Resident: Jake Rea ATTENDING PHYSICIAN STATEMENT I saw and evaluated the patient. I reviewed the resident's note and discussed the case with the resident. I agree with the resident's findings and plan as documented. SUBJECTIVE: PATIENT IS Feeling better with no acute distress, all his symptoms resolved OBJECTIVE: Vital Signs Temperature 97.7 F 03/18/18 05:00 Pulse Rate 73 03/18/18 05:00 Respiratory Rate 18 03/18/18 05:00 Blood Pressure 149/71 03/18/18 05:00 O2 Sat by Pulse Oximetry (%) 99 03/17/18 21:00 CBCD WBC 7.1 K/mm3 (4.0-10.0) 03/18/18 07:10 RBC 5.76 M/mm3 (4.00-5.60) H 03/18/18 07:10 Hgb 11.5 GM/dL (11.7-16.9) L 03/18/18 07:10 Hct 35.6 % (35.4-49) 03/18/18 07:10 MCV 61.8 fl (80-96) L 03/18/18 07:10 MCHC 32.4 g/dl (32.0-35.9) 03/18/18 07:10 RDW 17.0 % (11.9-15.9) H 03/18/18 07:10 Plt Count 233 K/MM3 (134-434) 03/18/18 07:10 MPV 10.7 fl (7.5-11.1) D 03/18/18 07:10 CMP Sodium 140 mmol/L (136-145) 03/18/18 07:10 Potassium 4.6 mmol/L (3.5-5.1) 03/18/18 07:10 Chloride 104 mmol/L (98-107) 03/18/18 07:10 Carbon Dioxide 27 mmol/L (21-32) 03/18/18 07:10 Anion Gap 9 (8-16) 03/18/18 07:10 BUN 9 mg/dL (7-18) 03/18/18 07:10 Creatinine 0.7 mg/dL (0.7-1.3) 03/18/18 07:10 Creat Clearance w eGFR > 60 (>60) 03/17/18 13:05 Random Glucose 180 mg/dL (74-106) H D 03/18/18 07:10 Calcium 9.2 mg/dL (8.5-10.1) 03/18/18 07:10 Total Bilirubin 0.7 mg/dL (0.2-1.0) D 03/17/18 13:05 AST 33 U/L (15-37) D 03/17/18 13:05 ALT 61 U/L (12-78) D 03/17/18 13:05 Alkaline Phosphatase 86 U/L (45-117) 03/17/18 13:05 Total Protein 7.3 g/dl (6.4-8.2) 03/17/18 13:05 Albumin 4.0 g/dl (3.4-5.0) 03/17/18 13:05 CARDIAC ENZYMES Creatine Kinase 91 IU/L (39-308) 03/17/18 13:05 Troponin I < 0.02 ng/ml (0.00-0.05) 03/17/18 19:30 Current Medications Generic Name Dose Route Start Last Admin Trade Name Ida PRN Reason Stop Dose Admin Amlodipine Besylate 7.5 mg 03/18/18 10:00 03/18/18 09:24 Norvasc - PO 7.5 mg DAILY KRISTOPHER Administration Aspirin 81 mg 03/18/18 10:00 03/18/18 09:24 Asa - PO 81 mg DAILY KRISTOPHER Administration Atorvastatin Calcium 40 mg 03/17/18 22:00 03/17/18 21:55 Lipitor - PO Not Given HS KRISTOPHER Heparin Sodium (Porcine) 5,000 unit 03/17/18 22:00 03/18/18 05:49 Heparin - SQ 5,000 unit TID KRISTOPHER Administration Sodium Chloride 1,000 mls @ 42 mls/hr 03/17/18 12:45 03/17/18 12:42 Normal Saline - IV 42 mls/hr ASDIR KRISTOPHER Administration Insulin Aspart 1 vial 03/17/18 22:00 03/18/18 06:17 Novolog Vial Sliding Scale - SQ Not Given ACHS [facility] Protocol Home Medications Medication Instructions Recorded metFORMIN HCL [Glucophage -] 500 mg PO BID 10/03/13 Lovastatin 20 mg PO DAILY 11/05/16 Amlodipine Besylate 7.5 mg PO DAILY 03/24/17 PE: as per resident's note ASSESSMENT AND PLAN: # Acute Left LUE Numbness and Tingling , MRI positive for acute stroke on Aspirin 81mg and lipitor 80mg po daily, Pending doppler and echo # HTN Uncontrolled will increase norvasc to 10mg po daily #T2DM SS #HLD on Lipitor 80mg po daily DVt Px : heparin
[2018-03-18] MEDS: SODIUM CHLORIDE 1,000 ML IV SCH (13:37)
[2018-03-18 18:32] VITALS: BP 128/77; PULSE 62; TEMP 98.7
--- NOTE | 2018-03-18 19:09 | DS ---
Physical Exam: SUBJECTIVE: Pt reports no complaints at this time. OBJECTIVE: Vital Signs Period Temp Pulse Resp BP Sys/Meléndez Pulse Ox Last 24 Hr 97.6 F-98.7 F 56-74 17-20 128-149/71-80 99-99 PHYSICAL EXAM GENERAL: NAD, awake, alert, and fully oriented, laying in bed with at bedside HEENT: EOMI, CHRIS, sclera anicteric, moist mucosa LUNGS: CTA bilaterally, no wheezes, no crackles, no accessory muscle use. HEART: RRR, S1, S2 without murmur, rub or gallop. ABDOMEN: Soft, nontender, nondistended, normoactive bowel sounds, no guarding EXTREMITIES: 2+ DP pulses, warm, well-perfused, no edema. NEUROLOGICAL: Cranial nerves II through XII grossly intact. Strength grossly 5/ 5 throughout, sensation grossly intact throughout. Normal speech, gait not observed. PSYCH: Normal mood, normal affect. SKIN: Warm, dry, no rashes or lesions noted. LABS Laboratory Results - last 24 hr 03/17/18 03/17/18 03/18/18 19:30 19:58 05:45 WBC RBC Hgb Hct MCV MCH MCHC RDW Plt Count MPV Sodium Potassium Chloride Carbon Dioxide Anion Gap BUN Creatinine POC Glucometer 116 169 Random Glucose Hemoglobin A1c % Calcium Troponin I < 0.02 03/18/18 03/18/18 03/18/18 07:10 07:10 07:10 WBC 7.1 RBC 5.76 H Hgb 11.5 L Hct 35.6 MCV 61.8 L MCH 20.0 L MCHC 32.4 RDW 17.0 H Plt Count 233 MPV 10.7 D Sodium 140 Potassium 4.6 Chloride 104 Carbon Dioxide 27 Anion Gap 9 BUN 9 Creatinine 0.7 POC Glucometer Random Glucose 180 H D Hemoglobin A1c % 8.6 H Calcium 9.2 Troponin I 03/18/18 15:55 WBC RBC Hgb Hct MCV MCH MCHC RDW Plt Count MPV Sodium Potassium Chloride Carbon Dioxide Anion Gap BUN Creatinine POC Glucometer 172 Random Glucose Hemoglobin A1c % Calcium Troponin I HOSPITAL COURSE: Date of Admission:03/17/18 Date of Discharge: 03/18/18 Pt initially admitted on 03/17/18 after experiencing Left arm weakness, numbness, and tingling which started around 14:30 the day of admission whilst carrying a tray of pizza (roughly 5lbs). His numbness lasted about 10 seconds and then pt reportedly had finger contraction for about 10 minutes. Pt was admitted for TIA r/o and for further MRI brain imaging after a Head CT was negative for acute pathology. Neurology was consulted who further agreed with MRI. Unfortunately that night when MRI was performed, it showed an acute/subacute lacunar infarct in the right posterior frontal lobe, precentral gyrus with mild volume loss and ventricular dilatation. Pt was then placed on ASA 81mg and Lipitor 40mg PO HS. Pt apparently had not been taking either prior to this stroke. In addition echocardiogram and carotid dopplers were ordered to assess for possible embolic etiology which revealed no significant deficit. Physical therapy evaluated the pt who was able to walk without deficit as well. Pt is currently being discharged in stable condition without residual defect with instructions to follow-up with Dr. George, continue taking Lipitor 40mg PO HS and ASA 81mg qDaily, and with f/u for his primary care provider. Additional Imaging: Carotid doppler 03/18/18: No evidence of hemodynamically significant stenosis in the common carotid arteries or cervical internal carotid arteries utilizing SRU criteria Echocardiogram 03/18/18: LV size, thickness, and function are normal. RV normal size and function. Trace MR Minutes to complete discharge: 35 Discharge Summary Reason For Visit: LEFT UPPER EXTREMITY NUMBNESS Current Active Problems Arm numbness left (Acute) Condition: Stable - Instructions Diet, Activity, Other Instructions: You were hospitalized because of your L arm numbness and found to have had a stroke. Your MRI confirmed this result. Your heart sonogram was normal. Your neck sonogram was normal MEDICATIONS: You will have to take Aspirin 81mg ONCE per day BY MOUTH from now on In addition we will give you Lipitor 40mg to be taken ONCE per day BY MOUTH --Thise medication was sent to your pharmacy You will need to follow a low-carb, low sugar diet as your diabetes marker was 8.5% --Avoid rice, sugar, bread, and products containing flour FOLLOW-UPS: Please follow-up with Dr. Keating regarding your hospital events and your A1c level (your diabetic marker) Please follow-up with Dr. George on an outpatient basis If your symptoms return or you notice any signs of stroke such as slurred speech , facial droop, impaired speech, or motor or sensory problems please come to the ER for evaluation Referrals: Philip George MD [Staff Physician] - Rose Mary Marquez MD [Primary Care Provider] - Disposition: HOME - Home Medications Comprehensive Discharge Medication List: Ambulatory Orders metFORMIN HCL [Glucophage -] 500 mg PO BID 10/03/13 Amlodipine Besylate 7.5 mg PO DAILY 03/24/17 Aspirin [ASA -] 81 mg PO DAILY tab.chew 03/18/18 Atorvastatin Ca [Lipitor] 40 mg PO HS #30 tablet 03/18/18 This patient is new to me today: No Emergency Visit: No Critical Care patient: No - Discharge Referral Referred to [facility] No
[2018-03-19] MEDS ORDERED: amLODIPine BESYLATE 5 MG TABLET (FP) PO SCH (10:00)
== END 2018-03-18 19:42 | disposition home or self-care (01) ==
LOC: JER 11:41 → JERBED 15:20 → INTOOBSV 15:20 → J4W 18:00
PROVIDERS: ADMIT Internal Medicine; ATTEND Internal Medicine
PROC: 3E013GC Introduction of Other Therapeutic Substance into Subcutaneous Tissue, Percutaneous Approach (ICD-10-PCS; principal; 2018-03-17)
DX: I63.8 Other cerebral infarction (principal); G83.24 Monoplegia of upper limb affecting left nondominant side; R20.0 Anesthesia of skin; R20.2 Paresthesia of skin; I10 Essential (primary) hypertension; E11.9 Type 2 diabetes mellitus without complications; E78.5 Hyperlipidemia, unspecified; F41.9 Anxiety disorder, unspecified; E66.9 Obesity, unspecified; Z68.41 Body mass index [BMI] 40.0-44.9, adult; Z88.1 Allergy status to other antibiotic agents; Z79.84 Long term (current) use of oral hypoglycemic drugs; Z91.14 Patient's other noncompliance with medication regimen
CPT/HCPCS: 36415; 70450-TC; 70551-TC; 80048; 80053; 81003; 82465; 82550; 82962; 83036; 83718; 83721; 84478; 84484; 85025; 85027; 85610; 86850; 86900; 86901; 93005; 93010; 93306-TC; 93880-TC; 96372; 97116-GP; 97161-GP; 99285-25; G0378; J1644; J7030

== ENCOUNTER 2018-12-01 10:26 | Observation (INO) | payer OTHER ==
--- NOTE | 2018-12-01 11:09 | PDOC ---
History of Present Illness - General Chief Complaint: Facial Droop Stated Complaint: FACIAL DROOP Time Seen by Provider: 12/01/18 10:41 - History of Present Illness Initial Comments: 12/01/18 11:05 The patient is a 53 year old male with a significant PMH of HTN, DM, s/p pacemaker, and prior CVA in March 2018 (no residual deficits) who presents to the emergency department with left sided facial droop that started at approximately 10 PM last night. Patient states that last he was drinking some water and noticed it was spilling out of the L side of his mouth. This morning pt noticed having redness to the left eye and difficulty closing it. Patient denies any tingling, numbness, or weakness in any extremity. Denies headache, blurred vision, or difficulty speaking. He denies chest pain, shortness of breath, or peripheral edema. Denies neck pain or trauma. The patient denies chest pain, shortness of breath, headache and dizziness. Denies fever, chills, nausea, vomit, diarrhea and constipation. Denies dysuria, frequency, urgency and hematuria. Allergies: NKA Past surgical history: None reported. Social history: No reported alcohol, drug, or cigarette use. Neurologist: Dr. George Past History - Past Medical History Allergies/Adverse Reactions: Allergies Allergy/AdvReac Type Severity Reaction Status Date / Time ciprofloxacin Allergy Mild Rash Verified 03/17/18 11:44 Home Medications: Ambulatory Orders metFORMIN HCL [Glucophage -] 500 mg PO BID 10/03/13 Amlodipine Besylate 7.5 mg PO DAILY 03/24/17 Aspirin [ASA -] 81 mg PO DAILY tab.chew 03/18/18 Atorvastatin Ca [Lipitor] 40 mg PO HS #30 tablet 03/18/18 Cancer: No COPD: No Diabetes: Yes HTN: Yes Hypercholesterolemia: Yes Psychiatric Problems: Yes (Anxiety) - Immunization History Immunization Up to Date: No - Suicide/Smoking/Psychosocial Hx Smoking Status: No Smoking History: Never smoked Have you smoked in the past 12 months: No Number of Cigarettes Smoked Daily: 0 Information on smoking cessation initiated: No Hx Alcohol Use: No Drug/Substance Use Hx: No Substance Use Type: None Review of Systems - Review of Systems Comments:: 12/01/18 11:09 GENERAL/CONSTITUTIONAL: No fever or chills. No weakness. HEAD, EYES, EARS, NOSE AND THROAT: No change in vision. No ear pain or discharge. No sore throat. CARDIOVASCULAR: No chest pain, no shortness of breath, no loss of consciousness RESPIRATORY: No cough, wheezing, or hemoptysis. GASTROINTESTINAL: No nausea, vomiting, diarrhea or constipation. GENITOURINARY: No dysuria, frequency, or change in urination. MUSCULOSKELETAL: No joint or muscle swelling or pain. No neck or back pain. SKIN: No rash NEUROLOGIC: (+) Left sided facial droop. No vertigo, no change in strength/ sensation. ENDOCRINE: No increased thirst. No abnormal weight change. HEMATOLOGIC/LYMPHATIC: No anemia, easy bleeding, or history of blood clots. ALLERGIC/IMMUNOLOGIC: No hives or skin allergy. *Physical Exam - Vital Signs Last Vital Signs Temp Pulse Resp BP Pulse Ox 97.6 F 75 16 148/78 97 12/01/18 10:30 12/01/18 10:30 12/01/18 10:30 12/01/18 10:30 12/01/18 10:30 - Physical Exam Comments: 12/01/18 11:05 GENERAL: Awake, alert, and fully oriented, in no acute distress. HEAD: No signs of trauma EYES: PERRLA, EOMI, sclera anicteric, conjunctiva clear ENT: Auricles normal inspection, hearing grossly normal, nares patent, oropharynx clear without exudates. Moist mucosa NECK: Nontender, no stepoffs, Normal ROM, supple, no lymphadenopathy, JVD, or masses LUNGS: Breath sounds equal, clear to auscultation bilaterally. No wheezes, and no crackles HEART: Regular rate and rhythm, normal S1 and S2, no murmurs, rubs or gallops ABDOMEN: Soft, nontender, normoactive bowel sounds. No guarding, no rebound. No masses EXTREMITIES: Normal range of motion, no edema. No clubbing or cyanosis. No cords, erythema, or tenderness NEUROLOGICAL: + L facial droop with no sparing of forehead, 5/5 strength and sensation in all extremities, Normal speech, normal gait, normal cerebellar function SKIN: Warm, Dry, normal turgor, no rashes or lesions noted. NIH Stroke Scale - Last Known Well Date/Time & Onset Date Last Known Well: 11/30/18 Time Last Known Well: 22:00 - Initial Evaluation Level of consciousness: Alert Ask patient the month and their age: Answers both correctly Ask patient to open & close eyes; make fist and let go: Obeys both correctly Best gaze (horizontal eye movement): Normal Visual field testing: No visual field loss Facial paresis (Show teeth/raise eyebrows/close eyes tight): Minor paralysis ( flattened nasolabial fold, asymmetry on smiling) Motor Function: Left Arm: Normal Motor Function: Right Arm: Normal (extends arm 90 (or 45) degrees for 10 seconds without drift Motor Function: Left Leg: Normal (extends leg 30 degrees for 5 seconds without drift) Motor Function: Right Leg: Normal (extends leg 30 degrees for 5 seconds without drift) Limb Ataxia: No ataxia Sensory(Use pinprick test arms,legs,trunk,face/side to side): Normal Best language (Describe picture, name items, read sentences): No Aphasia Dysarthria (read several words): Normal articulation Extinction and Inattention: No abnormality - Total Score NIH Stroke Scale Score: 1 Moderate Sedation - Procedure Monitoring Vital Signs: Procedure Monitoring Vital Signs Temperature 97.6 F 12/01/18 10:30 Pulse Rate 75 12/01/18 10:30 Respiratory Rate 16 12/01/18 10:30 Blood Pressure 148/78 12/01/18 10:30 O2 Sat by Pulse Oximetry (%) 97 12/01/18 10:30 Critical Care Time/MDM Note - Medical Decision Making Note: 12/01/18 11:03 53 M with L facial droop since last night. 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 However, given h/o CVA last year, will obtain imaging and neuro consultation. - Labs - CT head - Consult Dr. George 12/01/18 14:[address] head negative Pt admitted to hospitalist *DC/Admit/Observation/Transfer Diagnosis at time of Disposition: Aguilar's palsy - Discharge Dispostion Condition at time of disposition: Stable Decision to Admit order: Yes - Referrals Referrals: Rose Mary Marquez MD [Primary Care Provider] - - Patient Instructions - Post Discharge Activity - Attestations Physician Attestion: 12/01/18 14:04 I, Dr. Scott Kauffman MD, attest that this document has been prepared under my direction and personally reviewed by me in its entirety. I further attest, that it accurately reflects all work, treatment, procedures and medical decision -making performed by me.
[2018-12-01 11:12] LABS: BASO % 0.8 % (0-2.0); EOS % 1.2 % (0-4.5); HEMATOCRIT 38.9 % (35.4-49); HEMOGLOBIN 12.6 GM/dL (11.7-16.9); LYMPH % 38.8 % (8-40); MCHC 32.3 g/dl (32.0-35.9); MEAN PLT VOLUME 9.7 fl (7.5-11.1); MONO % 4.9 % (3.8-10.2); NEUT % 54.3 % (42.8-82.8); PLATELET COUNT 283 K/MM3 (134-434); RBC 6.27 M/mm3 (4.00-5.60); RDW 17.4 % (11.9-15.9); WHITE BLOOD COUNT 9.5 K/mm3 (4.0-10.0)
[2018-12-01] MEDS: SODIUM CHLORIDE 1,000 ML IV SCH (11:46)
[2018-12-01 11:47] LABS: INR 0.97 (0.83-1.09); PROTHROMBIN TIME (PATIENT) 11.4 SEC (9.7-13.0)
[2018-12-01 12:14] LABS: URINE APPEARANCE CLEAR; URINE BILIRUBIN NEGATIVE (<2.0 mg/dL); URINE COLOR YELLOW; URINE GLUCOSE (UA) NEGATIVE (NEGATIVE); URINE KETONE NEGATIVE (NEGATIVE); URINE LEUK ESTERASE NEGATIVE (NEGATIVE); URINE NITRITE NEGATIVE (NEGATIVE); URINE PROTEIN NEGATIVE (NEGATIVE); URINE UROBILINOGEN NEGATIVE mg/dL (0.2-1.0)
[2018-12-01 13:16] LABS: ALBUMIN 4.2 g/dl (3.4-5.0); ALK PHOS 91 U/L (45-117); ANION GAP 10 MMOL/L (8-16); BILIRUBIN,TOTAL 0.5 mg/dL (0.2-1); BLOOD UREA NITROGEN 13 mg/dL (7-18); CALCIUM 9.6 mg/dL (8.5-10.1); CHLORIDE 102 mmol/L (98-107); CHOLESTEROL 217 mg/dL (50-200); CO2 27 mmol/L (21-32); CREATININE 0.7 mg/dL (0.55-1.3); GLUCOSE,RANDOM 108 mg/dL (74-106); HDL CHOLESTEROL 40 mg/dL (40-60); POTASSIUM 4.2 mmol/L (3.5-5.1); SGOT/AST 46 U/L (15-37); SGPT/ALT 68 U/L (13-61); SODIUM 139 mmol/L (136-145); TOT PROT 7.9 g/dl (6.4-8.2); TRIGLYCERIDES 226 mg/dL (0-150)
--- NOTE | 2018-12-01 13:22 | EKG ---
Test Reason : Blood Pressure : / mmHG Vent. Rate : 071 BPM Atrial Rate : 071 BPM P-R Int : 160 ms QRS Dur : 096 ms QT Int : 390 ms P-R-T Axes : 038 -03 029 degrees QTc Int : 423 ms NORMAL SINUS RHYTHM MINIMAL VOLTAGE CRITERIA FOR LVH, MAY BE NORMAL VARIANT CANNOT RULE OUT ANTERIOR INFARCT , AGE UNDETERMINED ABNORMAL ECG WHEN COMPARED WITH ECG OF 17-MAR-2018 14:10, NO SIGNIFICANT CHANGE WAS FOUND Confirmed by ISAIAS ABRAHAM, RIVER ([id number]) on 12/01/2018 1:21:41 PM Referred By: Confirmed By:RIVER ESPARZA MD
[2018-12-01 14:04] LABS: ANISOCYTOSIS 1+; MACROCYTOSIS 0; PLATELET ESTIMATE NORMAL; TARGET CELLS 1+
--- NOTE | 2018-12-01 15:27 | HP ---
CHIEF COMPLAINT: right face flaccid. eye redness. left eye droopiness PCP: HISTORY OF PRESENT ILLNESS: Patient is a 53 year old male with a significant past medical history of hypertension, diabetes mellitus, Medtronic Reveel linq implanted device ( implanted on 04/2018), and 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 Patient presents to the ED today with concerns of left sided facial droop that started about 10pm last night. He noticed that when he drank water, the water spilled from his left side. He did not seek medical attention last night. He went to bed and when he woke up he noticed both his eyes were reddened and he was unable to control closure of his left eye. Patient denies any tingling, numbness, or weakness in any extremity. Further denies headache, blurred vision, or difficulty speaking. He denies chest pain, shortness of breath, or peripheral edema. No chest pain or shortness of breath. No recent travel or tick bites. He reports being compliant with his home medications and gluc checks. He reports recently being taken off his statin therapy by his PCP. Denies any other malaise. ER course was notable for: (1) head ct negative (2) (3) Recent Travel: PAST MEDICAL HISTORY: PAST SURGICAL HISTORY: Social History: Smoking: Alcohol: Drugs: Family History: Allergies ciprofloxacin Allergy (Mild, Verified 03/17/18 11:44) Rash HOME MEDICATIONS: Home Medications Medication Instructions Recorded metFORMIN HCL [Glucophage -] 500 mg PO BID 10/03/13 Amlodipine Besylate 7.5 mg PO DAILY 03/24/17 Aspirin [ASA -] 81 mg PO DAILY tab.chew 03/18/18 Atorvastatin Ca [Lipitor] 40 mg PO HS #30 tablet 03/18/18 REVIEW OF SYSTEMS CONSTITUTIONAL: Absent: fever, chills, diaphoresis, generalized weakness, malaise, loss of appetite, weight change HEENT: Absent: rhinorrhea, nasal congestion, throat pain, throat swelling, mouth swelling, ear pain, eye pain, visual changes CARDIOVASCULAR: Absent: chest pain, syncope, palpitations, irregular heart rate, lightheadedness , peripheral edema RESPIRATORY: Absent: cough, shortness of breath, dyspnea with exertion, orthopnea, wheezing, stridor, hemoptysis GASTROINTESTINAL: Absent: abdominal pain, abdominal distension, nausea, vomiting, diarrhea, constipation, melena, hematochezia GENITOURINARY: Absent: dysuria, frequency, urgency, hesitancy, hematuria, flank pain, genital pain MUSCULOSKELETAL: Absent: myalgia, arthralgia, joint swelling, back pain, neck pain SKIN: Absent: rash, itching, pallor HEMATOLOGIC/IMMUNOLOGIC: Absent: easy bleeding, easy bruising, lymphadenopathy, frequent infections ENDOCRINE: Absent: unexplained weight gain, unexplained weight loss, heat intolerance, cold intolerance NEUROLOGIC: Absent: headache, focal weakness or paresthesias, dizziness, unsteady gait, seizure, mental status changes, bladder or bowel incontinence PSYCHIATRIC: Absent: anxiety, depression, suicidal or homicidal ideation, hallucinations. PHYSICAL EXAMINATION Vital Signs - 24 hr 12/01/18 12/01/18 12/01/18 10:30 11:10 14:57 Temperature 97.6 F 98.2 F Pulse Rate 75 Pulse Rate [ 74 80 Apical] Respiratory 16 20 18 Rate Blood Pressure 148/78 Blood Pressure 125/72 119/70 [Left Arm] O2 Sat by Pulse 97 97 96 Oximetry (%) GENERAL: Awake, alert, and fully oriented, in no acute distress. HEAD:left sided facial droop, left eye redness EYES: Pupils equal, round and reactive to light EARS, NOSE, THROAT: Ears normal, nares patent, oropharynx clear without exudates. Moist mucous membranes. NECK: Normal range of motion, supple without lymphadenopathy, JVD, or masses. LUNGS: Breath sounds equal, clear to auscultation bilaterally. No wheezes, and no crackles. No accessory muscle use. HEART: Regular rate and rhythm ABDOMEN: Soft, nontender, not distended, normoactive bowel sounds MUSCULOSKELETAL: Normal range of motion at all joints. No bony deformities or tenderness. No CVA tenderness. UPPER EXTREMITIES: No peripheral edema. 5/5 LOWER EXTREMITIES: No peripheral edema. 5/5 NEUROLOGICAL: (+) Left sided facial droop. No vertigo, no change in strength/ sensation. PSYCHIATRIC: Cooperative. Appropriate mood and affect. SKIN: Warm, dry, normal turgor, no rashes or lesions noted, normal capillary refill. Laboratory Results - last 24 hr 12/01/18 12/01/18 12/01/18 10:58 10:58 10:58 WBC 9.5 RBC 6.27 H Hgb 12.6 Hct 38.9 MCV 62.0 L MCH 20.0 L MCHC 32.3 RDW 17.4 H Plt Count 283 D MPV 9.7 Absolute Neuts (auto) 5.1 Neutrophils % 54.3 Lymphocytes % 38.8 Monocytes % 4.9 Eosinophils % 1.2 Basophils % 0.8 Nucleated RBC % 0 Hypochromia 1+ Platelet Estimate Normal Polychromasia 1+ Poikilocytosis 1+ Anisocytosis 1+ Microcytosis 1+ Macrocytosis 0 Target Cells 1+ Stomatocytes 1+ [place] Cells 1+ PT with INR 11.40 INR 0.97 Sodium 139 Potassium 4.2 Chloride 102 Carbon Dioxide 27 Anion Gap 10 BUN 13 Creatinine 0.7 Creat Clearance w eGFR > 60 Random Glucose 108 H Calcium 9.6 Total Bilirubin 0.5 AST 46 H ALT 68 H Alkaline Phosphatase 91 Creatine Kinase 106 Troponin I < 0.02 Total Protein 7.9 Albumin 4.2 Triglycerides 226 H Cholesterol 217 H Total LDL Cholesterol 139 H HDL Cholesterol 40 Urine Color Urine Appearance Urine pH Ur Specific [place] Urine Protein Urine Glucose (UA) Urine Ketones Urine Blood Urine Nitrite Urine Bilirubin Urine Urobilinogen Ur Leukocyte Esterase Blood Type Antibody Screen 12/01/18 12/01/18 10:58 11:23 WBC RBC Hgb Hct MCV MCH MCHC RDW Plt Count MPV Absolute Neuts (auto) Neutrophils % Lymphocytes % Monocytes % Eosinophils % Basophils % Nucleated RBC % Hypochromia Platelet Estimate Polychromasia Poikilocytosis Anisocytosis Microcytosis Macrocytosis Target Cells Stomatocytes [place] Cells PT with INR INR Sodium Potassium Chloride Carbon Dioxide Anion Gap BUN Creatinine Creat Clearance w eGFR Random Glucose Calcium Total Bilirubin AST ALT Alkaline Phosphatase Creatine Kinase Troponin I Total Protein Albumin Triglycerides Cholesterol Total LDL Cholesterol HDL Cholesterol Urine Color Yellow Urine Appearance Clear Urine pH 5.0 Ur Specific [place] 1.023 Urine Protein Negative Urine Glucose (UA) Negative Urine Ketones Negative Urine Blood Negative Urine Nitrite Negative Urine Bilirubin Negative Urine Urobilinogen Negative Ur Leukocyte Esterase Negative Blood Type B NEGATIVE Antibody Screen Negative ASSESSMENT/PLAN: Patient is a 53 year old male with a significant past medical history of hypertension, diabetes mellitus, Medtronic Reveel linq implanted device ( implanted on 04/2018), and 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 Patient presents to the ED today with concerns of left sided facial droop that started about 10pm last night. He noticed that when he drank water, the water spilled from his left side. He did not seek medical attention last night. He went to bed and when he woke up he noticed both his eyes were reddened and he was unable to control closure of his left eye. Patient denies any tingling, numbness, or weakness in any extremity. Further denies headache, blurred vision, or difficulty speaking. He denies chest pain, shortness of breath, or peripheral edema. No chest pain or shortness of breath. No recent travel or tick bites. He reports being compliant with his home medications and gluc checks. He reports recently being taken off his statin therapy by his PCP. Denies any other malaise. Neuro CVA/TIA rule out Possible [place] Palsy History of prior CVA patient presents with left facial droop. initial head ct negative. brain mri pending on asa 81mg lipid panel reviewed, start on lipitor hmga1c in a.m. physical therapy speech and swallow evaluation Neurology consulted Card: hypertension. controlled. on amlodopine HLD. elevated lipid panel. Lipitor 40mg at hs [facility], monitor on tele Diabetes mellitus hma1c in a.m. start novolog, hold metformin fen start on low ivf since oral intake limited 2/2 facial droop will start diabetic diet as tolerated speech and swallow eval physical therapy on asa los <48 hours, defer a/c Visit type - Emergency Visit Emergency Visit: Yes ED Registration Date: 12/01/18 Care time: The patient presented to the Emergency Department on the above date and was hospitalized for further evaluation of their emergent condition. - New Patient This patient is new to me today: Yes Date on this admission: 12/02/18 - Critical Care Critical Care patient: No
[2018-12-01] MEDS ORDERED: ATORVASTATIN CA 40 MG TABLET (FP) ONE (22:21)
[2018-12-01] MEDS ORDERED: TETRAHYDROZOLINE HCL EYE DROPS OU PRN (22:59)
[2018-12-01] MEDS ORDERED: SODIUM CHLORIDE 1,000 ML IV SCH (23:15)
[2018-12-01] MEDS: ATORVASTATIN CA 40 MG TABLET (FP) PO SCH (23:55)
[2018-12-01] MEDS: INSULIN SLIDING SCALE (NOVOLOG) 1 VIAL SQ SCH (23:58)
[2018-12-02] MEDS: INSULIN SLIDING SCALE (NOVOLOG) 1 VIAL SQ SCH ×4 (06:37→21:17)
[2018-12-02 06:56] VITALS: BMI 41.6
--- NOTE | 2018-12-02 09:10 | CONSULT ---
Consult - text type - Consultation Consultation Note: Neurology CHIEF COMPLAINT: Facial droop, rule out CVA HISTORY OF PRESENT ILLNESS: 53 year old male with a significant past medical history of hypertension, diabetes mellitus, pacemaker, and 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 Patient presents to the ED with concerns of left sided facial droop that started about 10pm night prior to admission. He noticed that when he drank water, the water spilled from his left side. He did not seek medical attention right away. He went to bed and when he woke up he noticed both his eyes were reddened and he was unable to control closure of his left eye. Patient denied any tingling, numbness, or weakness in any extremity. Further denies headache, blurred vision, or difficulty speaking. He denied chest pain, shortness of breath, or peripheral edema. No chest pain or shortness of breath. No recent travel or tick bites. CT head was done in ER and negative. Called by ER, discussed case, given recent history of CVA, ER wanted to admit for MRI. Does report taking his ASA and statin with good compliance. Social History: Smoking: Alcohol: Drugs: Family History: Allergies ciprofloxacin Allergy (Mild, Verified 03/17/18 11:44) Rash HOME MEDICATIONS: Home Medications Medication Instructions Recorded metFORMIN HCL [Glucophage -] 500 mg PO BID 10/03/13 Amlodipine Besylate 7.5 mg PO DAILY 03/24/17 Aspirin [ASA -] 81 mg PO DAILY tab.chew 03/18/18 Atorvastatin Ca [Lipitor] 40 mg PO HS #30 tablet 03/18/18 REVIEW OF SYSTEMS CONSTITUTIONAL: Absent: fever, chills, diaphoresis, generalized weakness, malaise, loss of appetite, weight change HEENT: Absent: rhinorrhea, nasal congestion, throat pain, throat swelling, mouth swelling, ear pain, eye pain, visual changes CARDIOVASCULAR: Absent: chest pain, syncope, palpitations, irregular heart rate, lightheadedness , peripheral edema RESPIRATORY: Absent: cough, shortness of breath, dyspnea with exertion, orthopnea, wheezing, stridor, hemoptysis GASTROINTESTINAL: Absent: abdominal pain, abdominal distension, nausea, vomiting, diarrhea, constipation, melena, hematochezia GENITOURINARY: Absent: dysuria, frequency, urgency, hesitancy, hematuria, flank pain, genital pain MUSCULOSKELETAL: Absent: myalgia, arthralgia, joint swelling, back pain, neck pain SKIN: Absent: rash, itching, pallor HEMATOLOGIC/IMMUNOLOGIC: Absent: easy bleeding, easy bruising, lymphadenopathy, frequent infections ENDOCRINE: Absent: unexplained weight gain, unexplained weight loss, heat intolerance, cold intolerance NEUROLOGIC: Absent: headache, focal weakness or paresthesias, dizziness, unsteady gait, seizure, mental status changes, bladder or bowel incontinence PSYCHIATRIC: Absent: anxiety, depression, suicidal or homicidal ideation, hallucinations. PHYSICAL EXAMINATION Vital Signs Period Temp Pulse Resp BP Sys/Meléndez Pulse Ox Last 24 Hr 97.6 F-98.2 F 65-80 16-20 119-148/70-79 95-99 GENERAL: Awake, alert, and fully oriented, in no acute distress. HEAD:left sided facial droop, left eye redness EYES: Pupils equal, round and reactive to light EARS, NOSE, THROAT: Ears normal, nares patent, oropharynx clear without exudates. Moist mucous membranes. NECK: Normal range of motion, supple without lymphadenopathy, JVD, or masses. LUNGS: Breath sounds equal, clear to auscultation bilaterally. No wheezes, and no crackles. No accessory muscle use. HEART: Regular rate and rhythm ABDOMEN: Soft, nontender, not distended, normoactive bowel sounds MUSCULOSKELETAL: Normal range of motion at all joints. No bony deformities or tenderness. No CVA tenderness. UPPER EXTREMITIES: No peripheral edema. 5/5 LOWER EXTREMITIES: No peripheral edema. 5/5 NEUROLOGICAL: (+) Left sided facial droop. No vertigo, no change in strength/ sensation. PSYCHIATRIC: Cooperative. Appropriate mood and affect. SKIN: Warm, dry, normal turgor, no rashes or lesions noted, normal capillary refill. Laboratory Results - last 24 hr 12/01/18 12/01/18 12/01/18 10:58 10:58 10:58 WBC 9.5 RBC 6.27 H Hgb 12.6 Hct 38.9 MCV 62.0 L MCH 20.0 L MCHC 32.3 RDW 17.4 H Plt Count 283 D MPV 9.7 Absolute Neuts (auto) 5.1 Neutrophils % 54.3 Lymphocytes % 38.8 Monocytes % 4.9 Eosinophils % 1.2 Basophils % 0.8 Nucleated RBC % 0 Hypochromia 1+ Platelet Estimate Normal Polychromasia 1+ Poikilocytosis 1+ Anisocytosis 1+ Microcytosis 1+ Macrocytosis 0 Target Cells 1+ Stomatocytes 1+ [place] Cells 1+ PT with INR 11.40 INR 0.97 Sodium 139 Potassium 4.2 Chloride 102 Carbon Dioxide 27 Anion Gap 10 BUN 13 Creatinine 0.7 Creat Clearance w eGFR > 60 Random Glucose 108 H Calcium 9.6 Total Bilirubin 0.5 AST 46 H ALT 68 H Alkaline Phosphatase 91 Creatine Kinase 106 Troponin I < 0.02 Total Protein 7.9 Albumin 4.2 Triglycerides 226 H Cholesterol 217 H Total LDL Cholesterol 139 H HDL Cholesterol 40 Urine Color Urine Appearance Urine pH Ur Specific [place] Urine Protein Urine Glucose (UA) Urine Ketones Urine Blood Urine Nitrite Urine Bilirubin Urine Urobilinogen Ur Leukocyte Esterase Blood Type Antibody Screen 12/01/18 12/01/18 10:58 11:23 WBC RBC Hgb Hct MCV MCH MCHC RDW Plt Count MPV Absolute Neuts (auto) Neutrophils % Lymphocytes % Monocytes % Eosinophils % Basophils % Nucleated RBC % Hypochromia Platelet Estimate Polychromasia Poikilocytosis Anisocytosis Microcytosis Macrocytosis Target Cells Stomatocytes [place] Cells PT with INR INR Sodium Potassium Chloride Carbon Dioxide Anion Gap BUN Creatinine Creat Clearance w eGFR Random Glucose Calcium Total Bilirubin AST ALT Alkaline Phosphatase Creatine Kinase Troponin I Total Protein Albumin Triglycerides Cholesterol Total LDL Cholesterol HDL Cholesterol Urine Color Yellow Urine Appearance Clear Urine pH 5.0 Ur Specific [place] 1.023 Urine Protein Negative Urine Glucose (UA) Negative Urine Ketones Negative Urine Blood Negative Urine Nitrite Negative Urine Bilirubin Negative Urine Urobilinogen Negative Ur Leukocyte Esterase Negative Blood Type B NEGATIVE Antibody Screen Negative ASSESSMENT/PLAN: 53 year old male with a significant past medical history of hypertension, diabetes mellitus, pacemaker, and 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 Patient presents to the ED with concerns of left sided facial droop that started about 10pm night prior to admission. He noticed that when he drank water, the water spilled from his left side. He did not seek medical attention right away. He went to bed and when he woke up he noticed both his eyes were reddened and he was unable to control closure of his left eye. Patient denied any tingling, numbness, or weakness in any extremity. Further denies headache, blurred vision, or difficulty speaking. He denied chest pain, shortness of breath, or peripheral edema. No chest pain or shortness of breath. No recent travel or tick bites. CT head was done in ER and negative. Called by ER, discussed case, given recent history of CVA, ER wanted to admit for MRI. Does report taking his ASA and statin with good compliance. Discussed with nurse , recommended eye patch and eye drop to prevent corneal abrasions. IF CVA, then would need to adjust ASA to Aggrenox, but possibly Aguilar's and for this would need steroids, antiviral medication, facial exercises. Discussed this with patient at bedside in detail. Continue ASA, Statin at this time. BP control, goal<140/90. Monitor glucose, maintain euglycemic range.
--- NOTE | 2018-12-02 09:26 | PN ---
Physical Exam: SUBJECTIVE: Patient seen and examined. he does not have a pacemaker, but has a Medtronic Reveel LINQ device that was implanted after he had the stroke. He denies any blurred vision or lightheadness. OBJECTIVE: patient has a reveal linq meditronic recorder, per card its compatible with mri recorder placed 04/2018 Vital Signs Period Temp Pulse Resp BP Sys/Meléndez Pulse Ox Last 24 Hr 97.6 F-98.2 F 65-80 16-20 119-148/70-79 95-99 GENERAL: Awake, alert, and fully oriented, in no acute distress. HEAD:left sided facial droop, left eye redness EYES: Pupils equal, round and reactive to light EARS, NOSE, THROAT: Ears normal, nares patent, oropharynx clear without exudates. Moist mucous membranes. NECK: Normal range of motion, supple without lymphadenopathy, JVD, or masses. LUNGS: Breath sounds equal, clear to auscultation bilaterally. No wheezes, and no crackles. No accessory muscle use. HEART: Regular rate and rhythm ABDOMEN: Soft, nontender, not distended, normoactive bowel sounds MUSCULOSKELETAL: Normal range of motion at all joints. No bony deformities or tenderness. No CVA tenderness. UPPER EXTREMITIES: No peripheral edema. 5/5 LOWER EXTREMITIES: No peripheral edema. 5/5 NEUROLOGICAL: (+) Left sided facial droop. No vertigo, no change in strength/ sensation. PSYCHIATRIC: Cooperative. Appropriate mood and affect. SKIN: Warm, dry, normal turgor, no rashes or lesions noted, normal capillary refill. Laboratory Results - last 24 hr 12/01/18 12/01/18 12/01/18 10:58 10:58 10:58 WBC 9.5 RBC 6.27 H Hgb 12.6 Hct 38.9 MCV 62.0 L MCH 20.0 L MCHC 32.3 RDW 17.4 H Plt Count 283 D MPV 9.7 Absolute Neuts (auto) 5.1 Neutrophils % 54.3 Lymphocytes % 38.8 Monocytes % 4.9 Eosinophils % 1.2 Basophils % 0.8 Nucleated RBC % 0 Hypochromia 1+ Platelet Estimate Normal Polychromasia 1+ Poikilocytosis 1+ Anisocytosis 1+ Microcytosis 1+ Macrocytosis 0 Target Cells 1+ Stomatocytes 1+ [place] Cells 1+ PT with INR 11.40 INR 0.97 Sodium 139 Potassium 4.2 Chloride 102 Carbon Dioxide 27 Anion Gap 10 BUN 13 Creatinine 0.7 Creat Clearance w eGFR > 60 POC Glucometer Random Glucose 108 H Calcium 9.6 Total Bilirubin 0.5 AST 46 H ALT 68 H Alkaline Phosphatase 91 Creatine Kinase 106 Troponin I < 0.02 Total Protein 7.9 Albumin 4.2 Triglycerides 226 H Cholesterol 217 H Total LDL Cholesterol 139 H HDL Cholesterol 40 Urine Color Urine Appearance Urine pH Ur Specific [place] Urine Protein Urine Glucose (UA) Urine Ketones Urine Blood Urine Nitrite Urine Bilirubin Urine Urobilinogen Ur Leukocyte Esterase Blood Type Antibody Screen 12/01/18 12/01/18 12/01/18 10:58 11:23 18:39 WBC RBC Hgb Hct MCV MCH MCHC RDW Plt Count MPV Absolute Neuts (auto) Neutrophils % Lymphocytes % Monocytes % Eosinophils % Basophils % Nucleated RBC % Hypochromia Platelet Estimate Polychromasia Poikilocytosis Anisocytosis Microcytosis Macrocytosis Target Cells Stomatocytes [place] Cells PT with INR INR Sodium Potassium Chloride Carbon Dioxide Anion Gap BUN Creatinine Creat Clearance w eGFR POC Glucometer Random Glucose Calcium Total Bilirubin AST ALT Alkaline Phosphatase Creatine Kinase Troponin I < 0.02 Total Protein Albumin Triglycerides Cholesterol Total LDL Cholesterol HDL Cholesterol Urine Color Yellow Urine Appearance Clear Urine pH 5.0 Ur Specific [place] 1.023 Urine Protein Negative Urine Glucose (UA) Negative Urine Ketones Negative Urine Blood Negative Urine Nitrite Negative Urine Bilirubin Negative Urine Urobilinogen Negative Ur Leukocyte Esterase Negative Blood Type B NEGATIVE Antibody Screen Negative 12/01/18 12/02/18 23:56 06:34 WBC RBC Hgb Hct MCV MCH MCHC RDW Plt Count MPV Absolute Neuts (auto) Neutrophils % Lymphocytes % Monocytes % Eosinophils % Basophils % Nucleated RBC % Hypochromia Platelet Estimate Polychromasia Poikilocytosis Anisocytosis Microcytosis Macrocytosis Target Cells Stomatocytes [place] Cells PT with INR INR Sodium Potassium Chloride Carbon Dioxide Anion Gap BUN Creatinine Creat Clearance w eGFR POC Glucometer 93.83057 133 Random Glucose Calcium Total Bilirubin AST ALT Alkaline Phosphatase Creatine Kinase Troponin I Total Protein Albumin Triglycerides Cholesterol Total LDL Cholesterol HDL Cholesterol Urine Color Urine Appearance Urine pH Ur Specific [place] Urine Protein Urine Glucose (UA) Urine Ketones Urine Blood Urine Nitrite Urine Bilirubin Urine Urobilinogen Ur Leukocyte Esterase Blood Type Antibody Screen Active Medications Generic Name Dose Route Start Last Admin Trade Name Freq PRN Reason Stop Dose Admin Amlodipine Besylate 7.5 mg 12/02/18 10:00 Norvasc - PO DAILY KRISTOPHER Aspirin 81 mg 12/02/18 10:00 Asa - PO DAILY KRISTOPHER Atorvastatin Calcium 40 mg 12/01/18 22:00 12/01/18 23:55 Lipitor - PO 40 mg HS KRISTOPHER Administration Sodium Chloride 1,000 mls @ 42 mls/hr 12/01/18 11:00 12/01/18 11:46 Normal Saline - IV 42 mls/hr ASDIR KRISTOPHER Administration Insulin Aspart 1 vial 12/01/18 22:00 12/02/18 06:37 Novolog Vial Sliding Scale - SQ Not Given ACHS KRISTOPHER Protocol Tetrahydrozoline HCl 1 drop 12/02/18 09:15 Visine - OU Q6H KRISTOPHER ASSESSMENT/PLAN: Patient is a 53 year old male with a significant past medical history of hypertension, diabetes mellitus, Medtronic Reveel LINQ implanted device ( implanted on 04/2018), and 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 Patient presents to the ED with concerns of left sided facial droop. Neuro CVA/TIA rule out Possible [place] Palsy History of prior CVA patient presents with left facial droop. initial head ct negative. brain mri pending on asa 81mg lipid panel reviewed, start on lipitor hmga1c 8.6 physical therapy speech and swallow evaluation Neurology consulted and following Card: hypertension. controlled. on amlodopine HLD. elevated lipid panel. Lipitor 40mg at hs negative troponins Diabetes mellitus hma1c 8.6 start novolog, hold metformin fen tolerating po diabetic diet speech and swallow eval physical therapy on asa los <48 hours, defer a/c Visit type - Emergency Visit Emergency Visit: Yes ED Registration Date: 12/01/18 Care time: The patient presented to the Emergency Department on the above date and was hospitalized for further evaluation of their emergent condition. - New Patient This patient is new to me today: No - Critical Care Critical Care patient: No - Discharge Referral Referred to [facility] Med P.C.: No
[2018-12-02] MEDS: ASPIRIN 81 MG CHEWABLE TABLETS PO SCH (09:40)
[2018-12-02] MEDS: amLODIPine BESYLATE 5 MG TABLET (FP) PO SCH (09:40)
[2018-12-02 10:21] LABS: BASO % 0.7 % (0-2.0); EOS % 1.2 % (0-4.5); HEMATOCRIT 35.4 % (35.4-49); HEMOGLOBIN 11.4 GM/dL (11.7-16.9); MCHC 32.1 g/dl (32.0-35.9); MEAN CELL VOLUME 61.9 fl (80-96); MONO % 3.6 % (3.8-10.2); NEUT % 59.5 % (42.8-82.8); PLATELET COUNT 247 K/MM3 (134-434); RBC 5.72 M/mm3 (4.00-5.60); RDW 17.2 % (11.9-15.9); WHITE BLOOD COUNT 7.4 K/mm3 (4.0-10.0)
[2018-12-02 10:31] LABS: MCH 19.9 pg (25.7-33.7)
--- NOTE | 2018-12-02 10:32 | CONSULT ---
Admitting History and Physical - Primary Care Physician PCP: Tati Toussaint - Admission History of Present Illness: Patient is a 53 year old male with a significant past medical history of hypertension, diabetes mellitus, pacemaker, and prior CVA (march 2018) with no residual deficits, admitted with concerns of left sided facial droop and drooling while drinking. 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 CT head (-) MRI pending History Source: Patient, Family Member, Medical Record Limitations to Obtaining History: Language Barrier (some Spanish) - Smoking History Smoking history: Never smoked Have you smoked in the past 12 months: No Aproximately how many cigarettes per day: 0 - Alcohol/Substance Use Hx Alcohol Use: No History - Admission Reason For Visit: MANCUSO'S PALSY - Diagnostics CT Scan: Report Reviewed - General Mental Status: Alert and Oriented, Awake and Alert, Able to Follow Commands Attention: Intact Ability to Follow Directions: Excellent Head/Neck Control: WFL - Hearing Hearing: Normal Speech Evaluation - Communication Primary Language: ROMANSH Secondary Language: HUNGARIAN (some) Communication: Yes: Within Normal Limits Oral Expression Ability: Yes: No Impairment - Speech Production Able to Make Needs Known: Yes: WNL Intelligibility: Yes: WNL - Speech Characteristics Voice Loudness: Normal Voice Pitch: Yes: Normal Voice Phonatory-based Quality: Yes: Normal Speech Pattern: Normal Speech Clarity: < 100% Nasal Resonance: Normal Articulation: Yes: Precise Rate of Speech: Intact - Language/Auditory Comprehension Follows: Yes: 2 Stage Simple Commands Observation: Able to respond to yes/no queries: Yes, Yes/No Confusion: No, Comprehends Conversational Speech: Yes - Language/Verbal Expression Able to Respond to Simple Queries: Yes: WNL Able to Communicate Wants and Needs: Yes: WNL Functional Communication Status: Yes: WNL - Memory/Perception FPC Memory: Yes: WNL Short Term Memory: Yes: WNL - Swallow Evaluation/Bedside Assessment Current Nutritional Intake: Regular, Thin Liquids Oral Secretions: Yes: WFL Dentition: Yes: Adequate Facial Symmetry at Rest: Facial Droop Left Facial Symmetry on Retraction: Facial Droop Left (seems complete.No retraction.) Jaw Position: Closed at Rest Against Resistance Opening: Normal Against Resistance Closing: Normal Pucker Lips: Droops Left Smile: Droops Left Lingual Movement: Symmetric Lingual Speed of Movement: Normal Lingual Movement Strgth Against Opposition: Normal Lingual Movement Characteristics: Normal Velopharyngeal Movement: Normal Laryngeal Elevation: WFL Laryngeal Movement: Able to Palpate Rate of Intake: WFL Bolus Size: WFL Labial Seal: WFL Chewing: WFL (denies biting left cheek) Oral Prep Time: WFL A-P Transit: WFL Pocketing: None Timing of Swallow: WFL Coughing/Throat Clear: No Change in Voice: No Recommendations - Speech Evaluation, Impression/Plan Impression: Left facial weakness with no labial retraction on left. Left eyebrow elevation is reduced, assymetric. Pt able to close left eyelid upon command but incomplete.Left eye appears dry/red. Cognition/language/swallowing intact. Pending MRI, to confirm dx of Mancuso's Palsy. - Dysphagia Impressions/Plan Swallowing Skills: WFL Dysphagia Impressions: No Impairment *Silent aspiration: cannot be R/O at bedside Dysphagia Treatment Plan: Labial Exercises (and eyebrow/eye closure exercises) Recommendations: Other (Chew on right side and use straw, if neccessary. Concur with eye patch/eye rewetting drops.) - Recommendations Diet Consistency: Regular Medication Administration: Whole with water Liquids: Thin Liquids
[2018-12-02 11:05] LABS: ALBUMIN 3.5 g/dl (3.4-5.0); ALK PHOS 75 U/L (45-117); ANION GAP 8 MMOL/L (8-16); BILIRUBIN,TOTAL 0.6 mg/dL (0.2-1); BLOOD UREA NITROGEN 12 mg/dL (7-18); CALCIUM 9.1 mg/dL (8.5-10.1); CHLORIDE 104 mmol/L (98-107); CHOLESTEROL 189 mg/dL (50-200); CO2 27 mmol/L (21-32); CREATININE 0.7 mg/dL (0.55-1.3); GLUCOSE,RANDOM 165 mg/dL (74-106); HDL CHOLESTEROL 40 mg/dL (40-60); POTASSIUM 4.3 mmol/L (3.5-5.1); SGOT/AST 48 U/L (15-37); SGPT/ALT 65 U/L (13-61); SODIUM 139 mmol/L (136-145); TOT PROT 6.6 g/dl (6.4-8.2); TRIGLYCERIDES 164 mg/dL (0-150)
--- NOTE | 2018-12-02 11:21 | CON.CARD ---
Cardiology Consult (text) - Consultation Consultation Note: cc: facial droop hpi: 53 m hx dm, hld, htn, cva here with facial droop. No cp sob palps dizzy loc pnd orthopnea le edema. No hx hrt dz. Being evaluated for possible cva. pmh: per hpi psh: nc social: no tob fam: no premature cad, scd ros: per hpi; no nvd cough silva gib hematuria dysuria wt loss meds: Home Medications Medication Instructions Recorded metFORMIN HCL [Glucophage -] 500 mg PO BID 10/03/13 Amlodipine Besylate 7.5 mg PO DAILY 03/24/17 Aspirin [ASA -] 81 mg PO DAILY tab.chew 03/18/18 Atorvastatin Ca [Lipitor] 40 mg PO HS #30 tablet 03/18/18 pe: Vital Signs Period Temp Pulse Resp BP Sys/Meléndez Pulse Ox Last 24 Hr 97.8 F-98.2 F 65-80 18-20 119-137/70-79 95-99 nad no jvd rrr s1s2 no mrg cta bl nl eff aaox3 no le e/c/c abd nt nd pos bs no jaundiced diaphoresis pos dp pt no carotid bruits Laboratory Last Values WBC 7.4 K/mm3 (4.0-10.0) 12/02/18 09:30 RBC 5.72 M/mm3 (4.00-5.60) H 12/02/18 09:30 Hgb 11.4 GM/dL (11.7-16.9) L 12/02/18 09:30 Hct 35.4 % (35.4-49) 12/02/18 09:30 MCV 61.9 fl (80-96) L 12/02/18 09:30 MCH 19.9 pg (25.7-33.7) L 12/02/18 09:30 MCHC 32.1 g/dl (32.0-35.9) 12/02/18 09:30 RDW 17.2 % (11.9-15.9) H 12/02/18 09:30 Plt Count 247 K/MM3 (134-434) 12/02/18 09:30 MPV 10.0 fl (7.5-11.1) 12/02/18 09:30 Absolute Neuts (auto) 4.4 K/mm3 (1.5-8.0) 12/02/18 09:30 Neutrophils % 59.5 % (42.8-82.8) 12/02/18 09:30 Lymphocytes % 35.0 % (8-40) 12/02/18 09:30 Monocytes % 3.6 % (3.8-10.2) L 12/02/18 09:30 Eosinophils % 1.2 % (0-4.5) 12/02/18 09:30 Basophils % 0.7 % (0-2.0) 12/02/18 09:30 Nucleated RBC % 0 % (0-0) 12/02/18 09:30 Hypochromia 1+ 12/01/18 10:58 Platelet Estimate Normal 12/01/18 10:58 Polychromasia 1+ 12/01/18 10:58 Poikilocytosis 1+ 12/01/18 10:58 Anisocytosis 1+ 12/01/18 10:58 Microcytosis 1+ 12/01/18 10:58 Macrocytosis 0 12/01/18 10:58 Target Cells 1+ 12/01/18 10:58 Stomatocytes 1+ 12/01/18 10:58 Devora Cells 1+ 12/01/18 10:58 PT with INR 11.40 SEC (9.7-13.0) 12/01/18 10:58 INR 0.97 (0.83-1.09) 12/01/18 10:58 Sodium 139 mmol/L (136-145) 12/02/18 09:30 Potassium 4.3 mmol/L (3.5-5.1) 12/02/18 09:30 Chloride 104 mmol/L (98-107) 12/02/18 09:30 Carbon Dioxide 27 mmol/L (21-32) 12/02/18 09:30 Anion Gap 8 MMOL/L (8-16) 12/02/18 09:30 BUN 12 mg/dL (7-18) 12/02/18 09:30 Creatinine 0.7 mg/dL (0.55-1.3) 12/02/18 09:30 Creat Clearance w eGFR > 60 (>60) 12/02/18 09:30 POC Glucometer 133 UNITS (80-120) 12/02/18 06:34 Random Glucose 165 mg/dL (74-106) H 12/02/18 09:30 Hemoglobin A1c % 8.1 % (4.2-6.3) H 12/02/18 09:30 Calcium 9.1 mg/dL (8.5-10.1) 12/02/18 09:30 Magnesium 2.0 mg/dL (1.8-2.4) 12/02/18 09:30 Total Bilirubin 0.6 mg/dL (0.2-1) 12/02/18 09:30 AST 48 U/L (15-37) H 12/02/18 09:30 ALT 65 U/L (13-61) H 12/02/18 09:30 Alkaline Phosphatase 75 U/L (45-117) 12/02/18 09:30 Creatine Kinase 106 U/L (26-308) 12/01/18 10:58 Troponin I < 0.02 ng/ml (0.00-0.05) 12/02/18 09:30 Total Protein 6.6 g/dl (6.4-8.2) 12/02/18 09:30 Albumin 3.5 g/dl (3.4-5.0) 12/02/18 09:30 Triglycerides 164 mg/dL (0-150) H 12/02/18 09:30 Cholesterol 189 mg/dL (50-200) 12/02/18 09:30 Total LDL Cholesterol 126 mg/dL (5-100) H 12/02/18 09:30 HDL Cholesterol 40 mg/dL (40-60) 12/02/18 09:30 Urine Color Yellow 12/01/18 11:23 Urine Appearance Clear 12/01/18 11:23 Urine pH 5.0 (5.0-8.0) 12/01/18 11:23 Ur Specific [place] 1.023 (1.010-1.035) 12/01/18 11:23 Urine Protein Negative (NEGATIVE) 12/01/18 11:23 Urine Glucose (UA) Negative (NEGATIVE) 12/01/18 11:23 Urine Ketones Negative (NEGATIVE) 12/01/18 11:23 Urine Blood Negative (NEGATIVE) 12/01/18 11:23 Urine Nitrite Negative (NEGATIVE) 12/01/18 11:23 Urine Bilirubin Negative (<2.0 mg/dL) 12/01/18 11:23 Urine Urobilinogen Negative mg/dL (0.2-1.0) 12/01/18 11:23 Ur Leukocyte Esterase Negative (NEGATIVE) 12/01/18 11:23 Blood Type B NEGATIVE 12/01/18 10:58 Antibody Screen Negative 12/01/18 10:58 ecg: sr nl intervals no ischemic changes tele: sr a/p: 53 m hx dm, hld, htn, cva here with facial droop. possible cva, hx of cva: -neuro following, mri brain pending -check echo -cont tele -consider outpt event monitor/loop recorder to detect occult afib if tele benign here -cont asa, statin hld: -cont statin htn: -cont norvasc
[2018-12-02] MEDS ORDERED: PT OWN MED DRAWER 7, Y5N ONE ×4 (14:42→21:19)
--- NOTE | 2018-12-02 15:49 | ECHO ---
Name: CIARRA OMALLEY D Exam:Adult Echocardiogram Study Date: 12/02/2018 10:34 AM Age: 53 yrs Reason For Study: CVA Height: 68 in Weight: 274 lb BSA: 2.3 m2 MMode/2D Measurements & Calculations IVSd: 1.1 cm Ao root diam: 3.1 cm LVIDd: 5.0 cm ACS: 2.0 cm LVIDs: 3.7 cm LVPWd: 1.3 cm EDV(Teich): 117.5 ml LVOT diam: 2.0 cm ESV(Teich): 59.0 ml Doppler Measurements & Calculations Med Peak E' Nixon: 10.2 cm/sec Lat Peak E' Nixon: 12.7 cm/sec Procedure A complete two-dimensional transthoracic echocardiogram was performed (2D, M-mode, Doppler and color flow Doppler). The study was technically difficult with many images being suboptimal in quality. Left Ventricle The left ventricular size, thickness and function are normal. The left ventricular ejection fraction is normal. Ejection Fraction = 60-65%. Regional wall motion abnormalities cannot be excluded due to limi leroy visualization. Right Ventricle The right ventricle is not well visualized. Atria The left atrial size is normal. Right atrium not well visualized. Mitral Valve There is no mitral regurgitation noted. Tricuspid Valve There is trace tricuspid regurgitation. There was insufficient TR detected to calculate RV systolic p ressure. Aortic Valve No hemodynamically significant valvular aortic stenosis. No aortic regurgitation is present. Pulmonic Valve There is no pulmonic valvular regurgitation. Great Vessels The aortic root is normal size. Pericardium/Pleura There is no pericardial effusion. Interpretation Summary The study was technically difficult with many images being suboptimal in quality. The left ventricular size, thickness and function are normal The right ventricle is not well visualized. There is trace tricuspid regurgitation. MD Khang Srinivasan 12/02/2018 03:48 PM
[2018-12-02] MEDS: TETRAHYDROZOLINE HCL EYE DROPS OU SCH ×2 (16:40→17:49)
[2018-12-02] MEDS: SODIUM CHLORIDE 1,000 ML IV SCH (16:45)
[2018-12-02] MEDS: ATORVASTATIN CA 40 MG TABLET (FP) PO SCH (21:18)
[2018-12-02] MEDS: NAPHAZOLINE/PHENIRAMINE OPHTHALMIC 15 ML BOTTLE OU SCH (22:19)
[2018-12-03] MEDS: NAPHAZOLINE/PHENIRAMINE OPHTHALMIC 15 ML BOTTLE OU SCH ×2 (02:17→05:47)
[2018-12-03] MEDS: INSULIN SLIDING SCALE (NOVOLOG) 1 VIAL SQ SCH ×2 (06:56→11:25)
[2018-12-03 07:02] LABS: ALBUMIN 3.8 g/dl (3.4-5.0); ALK PHOS 80 U/L (45-117); ANION GAP 7 MMOL/L (8-16); BILIRUBIN,TOTAL 0.8 mg/dL (0.2-1); BLOOD UREA NITROGEN 14 mg/dL (7-18); CALCIUM 8.9 mg/dL (8.5-10.1); CHLORIDE 104 mmol/L (98-107); CO2 29 mmol/L (21-32); CREATININE 0.7 mg/dL (0.55-1.3); GLUCOSE,RANDOM 120 mg/dL (74-106); POTASSIUM 4.5 mmol/L (3.5-5.1); SGOT/AST 37 U/L (15-37); SGPT/ALT 64 U/L (13-61); SODIUM 139 mmol/L (136-145); TOT PROT 7.2 g/dl (6.4-8.2)
[2018-12-03] MEDS: amLODIPine BESYLATE 5 MG TABLET (FP) PO SCH (09:10)
[2018-12-03] MEDS: ASPIRIN 81 MG CHEWABLE TABLETS PO SCH (09:10)
--- NOTE | 2018-12-03 09:22 | PN ---
Progress Note (short form) - Note Progress Note: Neurology CHIEF COMPLAINT: Facial droop, rule out CVA HISTORY OF PRESENT ILLNESS: 53 year old male with a significant past medical history of hypertension, diabetes mellitus, pacemaker, and 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 Patient presents to the ED with concerns of left sided facial droop that started about 10pm night prior to admission. He noticed that when he drank water, the water spilled from his left side. He did not seek medical attention right away. He went to bed and when he woke up he noticed both his eyes were reddened and he was unable to control closure of his left eye. Patient denied any tingling, numbness, or weakness in any extremity. Further denies headache, blurred vision, or difficulty speaking. He denied chest pain, shortness of breath, or peripheral edema. No chest pain or shortness of breath. No recent travel or tick bites. CT head was done in ER and negative. Called by ER, discussed case, given recent history of CVA, ER wanted to admit for MRI. Does report taking his ASA and statin with good compliance. MRI completed and no acute changes. No infarcts. Explained to patient at bedside, relieved by this. Active Medications Amlodipine Besylate (Norvasc -) 7.5 mg PO DAILY [facility] Last Admin: 12/03/18 09:10 Dose: 7.5 mg Aspirin (Asa -) 81 mg PO DAILY [facility] Last Admin: 12/03/18 09:10 Dose: 81 mg Atorvastatin Calcium (Lipitor -) 40 mg PO HS [facility] Last Admin: 12/02/18 21:18 Dose: 40 mg Sodium Chloride (Normal Saline -) 1,000 mls @ 42 mls/hr IV ASDIR [facility] Last Admin: 12/02/18 16:45 Dose: Not Given Insulin Aspart (Novolog Vial Sliding Scale -) 1 vial SQ ACHS [facility]; Protocol Last Admin: 12/03/18 06:56 Dose: Not Given Naphazoline HCl/Pheniramine Maleate (Visine-A -) 1 drop OU Q6HPO [facility] Last Admin: 12/03/18 05:47 Dose: 1 drop PHYSICAL EXAMINATION Vital Signs Period Temp Pulse Resp BP Sys/Meléndez Pulse Ox Last 24 Hr 97.4 F-98.2 F 64-76 16-20 120-143/75-94 95-95 GENERAL: Awake, alert, and fully oriented, in no acute distress. HEAD:left sided facial droop, left eye redness EYES: Pupils equal, round and reactive to light EARS, NOSE, THROAT: Ears normal, nares patent, oropharynx clear without exudates. Moist mucous membranes. NECK: Normal range of motion, supple without lymphadenopathy, JVD, or masses. LUNGS: Breath sounds equal, clear to auscultation bilaterally. No wheezes, and no crackles. No accessory muscle use. HEART: Regular rate and rhythm ABDOMEN: Soft, nontender, not distended, normoactive bowel sounds MUSCULOSKELETAL: Normal range of motion at all joints. No bony deformities or tenderness. No CVA tenderness. UPPER EXTREMITIES: No peripheral edema. 03/13 LOWER EXTREMITIES: No peripheral edema. 03/13 NEUROLOGICAL: (+) Left sided facial droop. No vertigo, no change in strength/ sensation. PSYCHIATRIC: Cooperative. Appropriate mood and affect. SKIN: Warm, dry, normal turgor, no rashes or lesions noted, normal capillary refill. CBCD WBC 7.4 K/mm3 (4.0-10.0) 12/02/18 09:30 RBC 5.72 M/mm3 (4.00-5.60) H 12/02/18 09:30 Hgb 11.4 GM/dL (11.7-16.9) L 12/02/18 09:30 Hct 35.4 % (35.4-49) 12/02/18 09:30 MCV 61.9 fl (80-96) L 12/02/18 09:30 MCHC 32.1 g/dl (32.0-35.9) 12/02/18 09:30 RDW 17.2 % (11.9-15.9) H 12/02/18 09:30 Plt Count 247 K/MM3 (134-434) 12/02/18 09:30 MPV 10.0 fl (7.5-11.1) 12/02/18 09:30 CMP Sodium 139 mmol/L (136-145) 12/03/18 05:55 Potassium 4.5 mmol/L (3.5-5.1) 12/03/18 05:55 Chloride 104 mmol/L (98-107) 12/03/18 05:55 Carbon Dioxide 29 mmol/L (21-32) 12/03/18 05:55 Anion Gap 7 MMOL/L (8-16) L 12/03/18 05:55 BUN 14 mg/dL (7-18) 12/03/18 05:55 Creatinine 0.7 mg/dL (0.55-1.3) 12/03/18 05:55 Creat Clearance w eGFR > 60 (>60) 12/03/18 05:55 Random Glucose 120 mg/dL (74-106) H 12/03/18 05:55 Calcium 8.9 mg/dL (8.5-10.1) 12/03/18 05:55 Total Bilirubin 0.8 mg/dL (0.2-1) 12/03/18 05:55 AST 37 U/L (15-37) 12/03/18 05:55 ALT 64 U/L (13-61) H 12/03/18 05:55 Alkaline Phosphatase 80 U/L (45-117) 12/03/18 05:55 Total Protein 7.2 g/dl (6.4-8.2) 12/03/18 05:55 Albumin 3.8 g/dl (3.4-5.0) 12/03/18 05:55 CARDIAC ENZYMES Creatine Kinase 106 U/L (26-308) 12/01/18 10:58 Troponin I < 0.02 ng/ml (0.00-0.05) 12/02/18 09:30 ASSESSMENT/PLAN: 53 year old male with a significant past medical history of hypertension, diabetes mellitus, pacemaker, and 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 Patient presents to the ED with concerns of left sided facial droop that started about 10pm night prior to admission. He noticed that when he drank water, the water spilled from his left side. He did not seek medical attention right away. He went to bed and when he woke up he noticed both his eyes were reddened and he was unable to control closure of his left eye. Patient denied any tingling, numbness, or weakness in any extremity. Further denies headache, blurred vision, or difficulty speaking. He denied chest pain, shortness of breath, or peripheral edema. No chest pain or shortness of breath. No recent travel or tick bites. CT head was done in ER and negative. Called by ER, discussed case, given recent history of CVA, ER wanted to admit for MRI. Does report taking his ASA and statin with good compliance. MRI brain negative, no CVA. Recommended eye patch and eye drops to prevent corneal abrasions. Likely Aguilar's would need steroids for 5 days, antiviral medication, facial exercises. Discussed this with patient at bedside in detail. Continue ASA, Statin at this time. BP control, goal<130/80 as outpatient. Monitor glucose, maintain euglycemic range.
[2018-12-03] MEDS ORDERED: predniSONE 20 MG TABLET (UD) PO SCH (10:00)
--- NOTE | 2018-12-03 10:15 | DS ---
Physical Exam: SUBJECTIVE: Patient seen and examined. feels well, denies any discomfort or pain. OBJECTIVE: cleared by neuro for discharge with outpatient follow up brain mri negative for acute stroke Vital Signs Period Temp Pulse Resp BP Sys/Meléndez Pulse Ox Last 24 Hr 97.4 F-97.8 F 64-76 16-20 120-143/75-94 95-95 PHYSICAL EXAM GENERAL: Awake, alert, and fully oriented, in no acute distress. HEAD:left sided facial droop, left eye mild redness EYES: Pupils equal, round and reactive to light EARS, NOSE, THROAT: Ears normal, nares patent, oropharynx clear without exudates. Moist mucous membranes. NECK: Normal range of motion, supple without lymphadenopathy, JVD, or masses. LUNGS: Breath sounds equal, clear to auscultation bilaterally. No wheezes, and no crackles. No accessory muscle use. HEART: Regular rate and rhythm ABDOMEN: Soft, nontender, not distended, normoactive bowel sounds MUSCULOSKELETAL: Normal range of motion at all joints. No bony deformities or tenderness. No CVA tenderness. UPPER EXTREMITIES: No peripheral edema. 5/5 LOWER EXTREMITIES: No peripheral edema. 5/5 NEUROLOGICAL: (+) Left sided facial droop. No vertigo, no change in strength/ sensation. PSYCHIATRIC: Cooperative. Appropriate mood and affect. SKIN: Warm, dry, normal turgor, no rashes or lesions noted, normal capillary refill. LABS Laboratory Results - last 24 hr 12/02/18 12/02/18 12/02/18 09:30 09:30 09:30 WBC 7.4 RBC 5.72 H Hgb 11.4 L Hct 35.4 MCV 61.9 L MCH 19.9 L MCHC 32.1 RDW 17.2 H Plt Count 247 MPV 10.0 Absolute Neuts (auto) 4.4 Neutrophils % 59.5 Lymphocytes % 35.0 Monocytes % 3.6 L Eosinophils % 1.2 Basophils % 0.7 Nucleated RBC % 0 Sodium 139 Potassium 4.3 Chloride 104 Carbon Dioxide 27 Anion Gap 8 BUN 12 Creatinine 0.7 Creat Clearance w eGFR > 60 POC Glucometer Random Glucose 165 H Hemoglobin A1c % 8.1 H Calcium 9.1 Magnesium 2.0 Total Bilirubin 0.6 AST 48 H ALT 65 H Alkaline Phosphatase 75 Troponin I < 0.02 Total Protein 6.6 Albumin 3.5 Triglycerides 164 H Cholesterol 189 Total LDL Cholesterol 126 H HDL Cholesterol 40 12/02/18 12/02/18 12/02/18 11:48 16:43 16:47 WBC RBC Hgb Hct MCV MCH MCHC RDW Plt Count MPV Absolute Neuts (auto) Neutrophils % Lymphocytes % Monocytes % Eosinophils % Basophils % Nucleated RBC % Sodium Potassium Chloride Carbon Dioxide Anion Gap BUN Creatinine Creat Clearance w eGFR POC Glucometer 137 123 174 Random Glucose Hemoglobin A1c % Calcium Magnesium Total Bilirubin AST ALT Alkaline Phosphatase Troponin I Total Protein Albumin Triglycerides Cholesterol Total LDL Cholesterol HDL Cholesterol 12/02/18 12/03/18 12/03/18 21:15 05:46 05:55 WBC RBC Hgb Hct MCV MCH MCHC RDW Plt Count MPV Absolute Neuts (auto) Neutrophils % Lymphocytes % Monocytes % Eosinophils % Basophils % Nucleated RBC % Sodium 139 Potassium 4.5 Chloride 104 Carbon Dioxide 29 Anion Gap 7 L BUN 14 Creatinine 0.7 Creat Clearance w eGFR > 60 POC Glucometer 184 142 Random Glucose 120 H Hemoglobin A1c % Calcium 8.9 Magnesium Total Bilirubin 0.8 AST 37 ALT 64 H Alkaline Phosphatase 80 Troponin I Total Protein 7.2 Albumin 3.8 Triglycerides Cholesterol Total LDL Cholesterol HDL Cholesterol HOSPITAL COURSE: Date of Admission:12/01/18 Date of Discharge: 12/03/18 Patient is a 53 year old male with a significant past medical history of hypertension, diabetes mellitus, [employer] Reveel LINQ implanted device ( implanted on 04/2018), and 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 Patient presents to the ED with concerns of left sided facial droop. imaging: brain mri> negative for acute stroke. Neuro CVA/TIA ruled out with brain mri History of prior CVA lipid panel reviewed, start on lipitor 40mg daily on ASA 81mg daily no speech or swallowing deficits ambulatory steady without difficulty or assistive devices [place] Palsy, acute patient presents with left facial droop. initial head ct negative. brain mri negative for stroke. Treatment for [place] Palsy with Acyclovir 400mg tid x 5 days, Prednisone 40 mg x 5 days facial exercises and left eye patch He will follow up with Dr. George outpatient. discussed in detail with patient and his . Card: hypertension. controlled. on amlodopine HLD. elevated lipid panel. Lipitor 40mg at hs negative troponins Diabetes mellitus hma1c 8.14 On Metformin Discussed monitoring bgms while on steriods discharge home with neurology follow up. Minutes to complete discharge: 45 Discharge Summary Reason For Visit: AGUILAR'S PALSY Current Active Problems Aguilar's palsy (Acute) Condition: Improved - Instructions Diet, Activity, Other Instructions: Mr Gomez. You were placed under observation at [facility] for rule out stroke. Your brain MRI is negative for stroke. Your diagnosis is [place] Palsy. Here are our recommendations: -Continue the eye patch to your left eye and apply eye drops to both eyes every 6 hours -Start Acyclovir 500mg three times per day at 8am, 2pm and 8pm for 5 days total (from 12/03/2018 through 12/07/2018). While you are on acyclovir it is important that you hydrate with at least 8 glasses of water -Prednisone 40mg daily for 5 days (from 12/03/18 through 12/07/2018) -continue facial exercises. -Continue aspirin 81mg daily and your lipitor 40mg at bedtime -Keep your blood pressures under control to a goal of 120/80. -Monitor your glucose while on prednisone -Continue your Metformin and follow up with your PCP and Dr. George. I am available for questions. Please do not hesitate to contact me. Shayla Drew Hestand [employer] [facility] [phone] Referrals: Philip George MD [Staff Physician] - 2 Weeks Rose Mary Marquez MD [Primary Care Provider] - Disposition: HOME - Home Medications Comprehensive Discharge Medication List: Ambulatory Orders metFORMIN HCL [Glucophage -] 500 mg PO BID 10/03/13 Amlodipine Besylate 7.5 mg PO DAILY 03/24/17 Aspirin [ASA -] 81 mg PO DAILY tab.chew 03/18/18 Atorvastatin Ca [Lipitor] 40 mg PO HS #30 tablet 03/18/18 Acyclovir [Zovirax -] 400 mg PO TID #15 tablet 12/03/18 Atorvastatin Ca [Lipitor] 40 mg PO HS #30 tablet 12/03/18 Tetrahydrozoline HCl [Visine -] 1 drop OU Q6H PRN #1 bottle 12/03/18 Tetrahydrozoline HCl [Visine -] 1 drop OU Q6HPO #0 drops 12/03/18 predniSONE [Deltasone -] 40 mg PO DAILY #10 tablet 12/03/18 This patient is new to me today: No Emergency Visit: Yes ED Registration Date: 12/01/18 Care time: The patient presented to the Emergency Department on the above date and was hospitalized for further evaluation of their emergent condition. Critical Care patient: No - Discharge Referral Referred to [facility] Med [facility].: No
[2018-12-03 10:42] VITALS: BP 122/85; PULSE 70; TEMP 98.2
--- NOTE | 2018-12-03 12:07 | PN ---
Progress Note (short form) - Note Progress Note: s: no cp sob palps dizzy o: Vital Signs Period Temp Pulse Resp BP Sys/Meléndez Pulse Ox Last 24 Hr 97.4 F-98.2 F 64-76 16-18 120-143/75-94 95-95 nad no jvd rrr s1s2 no mrg cta bl nl eff aaox3 no le e/c/c abd nt nd pos bs no jaundiced diaphoresis Current Medications Generic Name Dose Route Start Last Admin Trade Name Ida PRN Reason Stop Dose Admin Acyclovir 400 mg 12/03/18 14:00 Zovirax - PO TID KRISTOPHER Amlodipine Besylate 7.5 mg 12/02/18 10:00 12/03/18 09:10 Norvasc - PO 7.5 mg DAILY KRISTOPHER Administration Aspirin 81 mg 12/02/18 10:00 12/03/18 09:10 Asa - PO 81 mg DAILY KRISTOPHER Administration Atorvastatin Calcium 40 mg 12/01/18 22:00 12/02/18 21:18 Lipitor - PO 40 mg HS KRISTOPHER Administration Sodium Chloride 1,000 mls @ 42 mls/hr 12/01/18 11:00 12/02/18 16:45 Normal Saline - IV Not Given ASDIR KRISTOPHER Insulin Aspart 1 vial 12/01/18 22:00 12/03/18 11:25 Novolog Vial Sliding Scale - SQ Not Given ACHS [facility] Protocol Naphazoline HCl/Pheniramine Maleate 1 drop 12/02/18 20:45 12/03/18 05:47 Visine-A - OU 1 drop Q6HPO KRISTOPHER Administration Prednisone 40 mg 12/03/18 10:00 12/03/18 10:44 Deltasone - PO 40 mg DAILY KRISTOPHER Administration CBC, BMP 12/02/18 09:30 12/03/18 05:55 ecg: sr nl intervals no ischemic changes echo 11/2018: tds; nl lv, rv tds, no sig valve path tele: sr a/p: 53 m hx dm, hld, htn, cva here with facial droop. 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
[2018-12-03] MEDS ORDERED: ACYCLOVIR 400 MG TABLET PO SCH (14:00)
== END 2018-12-03 13:12 | disposition home or self-care (01) ==
LOC: JER 10:26 → JERBED 14:04 → J4S 12-02 06:13
PROVIDERS: ADMIT Internal Medicine; ATTEND Nurse Practitioner Family
DX: G51.0 Bell's palsy (principal); I10 Essential (primary) hypertension; E11.9 Type 2 diabetes mellitus without complications; E78.5 Hyperlipidemia, unspecified; F41.9 Anxiety disorder, unspecified; Z79.82 Long term (current) use of aspirin; Z79.84 Long term (current) use of oral hypoglycemic drugs; Z88.1 Allergy status to other antibiotic agents; Z86.73 Personal history of transient ischemic attack (TIA), and cerebral infarction without residual deficits; Z95.0 Presence of cardiac pacemaker
CPT/HCPCS: 36415; 70450-TC; 70551-TC; 80053; 80061; 81003; 82465; 82550; 82962; 83036; 83718; 83721; 83735; 84478; 84484; 85025; 85610; 86850; 86900; 86901; 93005; 93010; 93306-TC; 93880-TC; 97116-GP; 97161-GP; 99285-25; G0378; J7030